=== PATIENT | female | born 1950 | race Caucasian/White ===

== ENCOUNTER 2017-05-20 12:17 | Emergency (ER) | payer BC ==
[~2017-05-20 12:17] MED LIST: ASPI325T39 PO; CPR500 PO; FLEC100T21 PO; MAGN400T6 PO; MCRK20 PO; METO100T14 PO; NRN100 PO; PANT40TA PO; RANI300T2 PO
[2017-05-20 12:23] VITALS: Ht 152.4 cm
[2017-05-20] MEDS ORDERED: PROMETHAZINE HCL INJ 25 MG/ML 1 ML VIAL IV STA (13:10)
[2017-05-20] MEDS ORDERED: SODIUM CHLORIDE 0.9% 1000ML 1,000 ML IV STA (13:10)
[2017-05-20] MEDS ORDERED: KETOROLAC TROMETHAMINE 30 MG/ML VIAL IV STA (13:10)
[2017-05-20] MEDS ORDERED: TPRSR/100 PO (13:12)
[2017-05-20] MEDS ORDERED: MISCCAP80 PO (13:12)
[2017-05-20] MEDS ORDERED: OPTIRAY 320 IV PRN (13:30)
[2017-05-20 13:43] LABS: BASO % 0.5 %; BASO ABS # 0.04 K/uL (0-0.2); COMPLETE YES; EOS % 4.7 %; HEMATOCRIT 47.9 % (37-47); IG% 0.3 %; LYMPH % 25.4 %; LYMPH ABS # 1.94 K/uL (1.2-3.4); MEAN CELL VOLUME 91.1 fL (80-100); MEAN CORPUSCULAR HEMOGLOBIN 31.2 pg (25-34); MEAN CORPUSCULAR HGB CONC 34.2 g/dl (32-36); MEAN PLATELET VOLUME 10.8 fL (7.4-10.4); MONO % 9.5 %; NEUT % 59.6 %; PLATELET COUNT 194 K/uL (130-400); RED BLOOD COUNT 5.26 M/uL (4.2-5.4); WHITE BLOOD COUNT 7.65 K/uL (4.8-10.8)
[2017-05-20 14:10] LABS: ALKALINE PHOSPHATASE 102 U/L (45-117); ALT/SGPT 34 U/L (12-78); BLOOD UREA NITROGEN 19 mg/dl (7-18); BUN/CREATININE RATIO 22.1 (10-20); CALCIUM 9.6 mg/dl (8.5-10.1); CARBON DIOXIDE 27 mmol/L (21-32); CHLORIDE 108 mmol/L (98-107); CREATININE 0.87 mg/dl (0.60-1.20); GLUCOSE 93 mg/dl (70-99); SODIUM 142 mmol/L (136-145)
[2017-05-20] MEDS ORDERED: MoRPHine SULFATE 4 MG/ML 1 ML CARP\\VIAL IV STA (14:19)
--- NOTE | 2017-05-20 16:47 | DIAGNOSTIC IMAGING REPORT ---
ABD/PELVIS IV AND ORAL CONT CT DOSE: 994.54 mGycm HISTORY: Pain ABDOMINAL PAIN/GI TECHNIQUE: Multiaxial CT images of the abdomen and pelvis were performed following the use of intravenous and oral contrast. A dose lowering technique was utilized adhering to the principles of ALARA. COMPARISON STUDY: 06/28/2015 FINDINGS: Lung bases are clear. Liver spleen and pancreas are uniform in appearance. Kidneys are remarkable for several nonobstructing renal calcifications. Bowel pattern is nonobstructive. There is no evidence for an obstructing urinary tract calculus. The appendix is normal. Bladder is midline. There is scattered sigmoid diverticuli with no evidence for diverticulitis. Stable postoperative changes to the lumbar spine. IMPRESSION: 1. No acute process of the abdomen or pelvis. 2. Prior cholecystectomy as well as lumbar laminectomy. 3. Normal appendix. 4. Nonobstructive bowel pattern. 5. Mild chronic sigmoid diverticulosis. The above report was generated using voice recognition software. It may contain grammatical, syntax or spelling errors. Electronically signed by: Clayton Ramsay M.D. 05/20/2017 4:45 PM Dictated Date/Time: 05/20/2017 4:43 PM
[2017-05-20 17:01] LABS: URINE APPEARANCE CLEAR (CLEAR); URINE BILIRUBIN NEG (NEG); URINE COLOR YELLOW; URINE NITRITE NEG (NEG); URINE PH 5.5 (4.5-7.5); URINE SPECIFIC GRAVITY 1.014 (1.000-1.030); UROBILINOGEN NEG (NEG)
[2017-05-20 17:08] LABS: MANUAL MICROSCOPIC REQUIRED? NO; REVIEW REQ? NO
[2017-05-20] MEDS ORDERED: PROM1SUP19 PR (17:53)
--- NOTE | 2017-05-20 17:54 | EMERGENCY ROOM VISIT NOTE ---
ED Visit Note First contact with patient: 13:00 The patient was seen and examined with SONYA Rojas. I agree with the history, physical and findings. Please see the note for disposition and details.
[2017-05-20 18:32] VITALS: BP 132/72; PULSE 68; O2SAT 98
--- NOTE | 2017-05-28 15:24 | EMERGENCY ROOM VISIT NOTE ---
History First contact with patient: 13:00 Chief Complaint: REFERRED BY DOCTOR Stated Complaint: COLITIS-SENT FROM PCP OFFICE History of Present Illness The patient is a 66 year old female who presents to the Emergency Room with complaints of abdominal pain that feels like a belt around her abdomen. The patient reports that her symptoms started Friday morning, a little over 48 hours ago. The patient reports a history of colitis, and has been admitted before in the past for her symptoms. She is currently under the management of [facility], with her last visit approximately 2 months ago. She was undergoing testing to look at the possibility of Crohn's disease. Her last colonoscopy was after her last admission to our hospital in March 2015. She was found to have sigmoid diverticulosis, and changes at the terminal ileum. The patient reports that she transferred her care from Dr. Lee to [facility]. The patient reports that her last flareup was in August 2016 while working in [place]. The patient is a traveling nurse. She has noticed increased mucus in her stool without any recent blood. She has had bloody stools in the past. The patient reports that she is currently scheduled for a colonoscopy in June. She currently rates her discomfort an 8 out of 10. She was sent here by her PCP for further workup. Review of Systems HEENT: Denies dizziness, visual problems, hearing loss, tinnitus. Denies difficulty swallowing or oral lesions. PULMONARY: Denies cough, shortness of breath, sputum production or hemoptysis. CARDIOVASCULAR: Denies chest pain, palpitations, dyspnea on exertion, orthopnea or peripheral edema. GASTROINTESTINAL: See history of present illness. GENITOURINARY: Denies dysuria, frequency, urgency or nocturia. NEUROLOGIC: Denies history of epilepsy, CVA, TIA or chronic headaches. MUSCULOSKELETAL: Denies history of joint tenderness/swelling. SKIN: Denies rashes or lesions. PSYCHIATRIC: Denies history of depression or mental illness. ENDOCRINE: Denies history of diabetes or thyroid disorders. Past Medical/Surgical History Medical Problems: (1) GERD (gastroesophageal reflux disease) (2) Pacemaker Surgical Problems: (1) H/O: hysterectomy (2) S/P appendectomy (3) S/P cholecystectomy Family History Diabetes mellitus FH: cancer FH: gallbladder disease FH: kidney disease FHx: heart disease Hypertension TIAs Social History Smoking Status: Never Smoker Alcohol Use: occasionally Marital Status: Housing Status: lives with significant other Current/Historical Medications Scheduled Metoprolol Succinate (Metoprolol Succinate ER), 100 MG PO DAILY Probiotic Product (Probiotic), 1 CAP PO DAILY Ranitidine (Zantac), 300 MG PO BID Scheduled PRN Promethazine (Phenergan Suppository), 25 MG NM Q4H PRN for Nausea Physical Exam Vital Signs Date Time Temp Pulse Resp B/P (MAP) Pulse Ox O2 Delivery O2 Flow Rate FiO2 05/20/17 18:32 68 16 132/72 98 05/20/17 16:10 65 16 125/76 97 Room Air 05/20/17 14:18 72 16 137/72 97 Room Air 05/20/17 12:23 36.9 76 20 146/85 97 Room Air Physical Exam CONSTITUTIONAL: Healthy and well nourished. Alert and oriented X 3 with positive affect. Patient appears in mild to moderate discomfort. She does not appear acutely ill or toxic. HEENT: Normocephalic, atraumatic. Pupils equal, round and reactive. No scleral icterus or conjunctival injection/pallor. OROPHARYNX: Mucous membranes are dry. NECK: Full active range of motion without discomfort. RESPIRATORY: Clear to auscultation bilaterally with no wheezing, crackles, rhonchi or stridor. CARDIOVASCULAR: Regular rate and rhythm with no murmurs, rubs or gallops. GASTROINTESTINAL: Examination shows diffuse tenderness to palpation of the entire abdomen without obvious rebound. Negative psoas sign. Negative heel tap. Negative CVA tenderness. MUSCULOSKELETAL: Full range of motion of all joints without discomfort. INTEGUMENTARY: No rash or other significant dermatologic conditions noted. HEMATOLOGIC: No ecchymosis or petechiae. NEUROLOGIC: No focal neurologic deficits noted. Medical Decision & Procedures ER Provider Diagnostic Interpretation: Enhanced CT of the abdomen and pelvis does not show any evidence for diverticulitis, bowel obstruction, appendicitis or other acute findings. Radiologist report is as follows: ABD/PELVIS IV AND ORAL CONT CT DOSE: 994.54 mGycm HISTORY: Pain ABDOMINAL PAIN/GI TECHNIQUE: Multiaxial CT images of the abdomen and pelvis were performed following the use of intravenous and oral contrast. A dose lowering technique was utilized adhering to the principles of ALARA. COMPARISON STUDY: 06/28/2015 FINDINGS: Lung bases are clear. Liver spleen and pancreas are uniform in appearance. Kidneys are remarkable for several nonobstructing renal calcifications. Bowel pattern is nonobstructive. There is no evidence for an obstructing urinary tract calculus. The appendix is normal. Bladder is midline. There is scattered sigmoid diverticuli with no evidence for diverticulitis. Stable postoperative changes to the lumbar spine. IMPRESSION: 1. No acute process of the abdomen or pelvis. 2. Prior cholecystectomy as well as lumbar laminectomy. 3. Normal appendix. 4. Nonobstructive bowel pattern. 5. Mild chronic sigmoid diverticulosis. Laboratory Results 05/20/17 13:25 Red Blood Count 5.26, Mean Corpuscular Volume 91.1, Mean Corpuscular Hemoglobin 31.2, Mean Corpuscular Hemoglobin Concent 34.2, Mean Platelet Volume 10.8, Neutrophils (%) (Auto) 59.6, Lymphocytes (%) (Auto) 25.4, Monocytes (%) (Auto) 9.5, Eosinophils (%) (Auto) 4.7, Basophils (%) (Auto) 0.5, Neutrophils # (Auto) 4.56, Lymphocytes # (Auto) 1.94, Monocytes # (Auto) 0.73, Eosinophils # (Auto) 0.36, Basophils # (Auto) 0.04 05/20/17 13:25 05/20/17 15:10 Test 05/20/17 13:25 05/20/17 13:30 05/20/17 15:10 05/20/17 16:38 White Blood Count 7.65 K/uL (4.8-10.8) Red Blood Count 5.26 M/uL (4.2-5.4) Hemoglobin 16.4 g/dL (12.0-16.0) Hematocrit 47.9 % (37-47) Mean Corpuscular Volume 91.1 fL (80-100) Mean Corpuscular Hemoglobin 31.2 pg (25-34) Mean Corpuscular Hemoglobin Concent 34.2 g/dl (32-36) Platelet Count 194 K/uL (130-400) Mean Platelet Volume 10.8 fL (7.4-10.4) Neutrophils (%) (Auto) 59.6 % Lymphocytes (%) (Auto) 25.4 % Monocytes (%) (Auto) 9.5 % Eosinophils (%) (Auto) 4.7 % Basophils (%) (Auto) 0.5 % Neutrophils # (Auto) 4.56 K/uL (1.4-6.5) Lymphocytes # (Auto) 1.94 K/uL (1.2-3.4) Monocytes # (Auto) 0.73 K/uL (0.11-0.59) Eosinophils # (Auto) 0.36 K/uL (0-0.5) Basophils # (Auto) 0.04 K/uL (0-0.2) RDW Standard Deviation 44.4 fL (36.4-46.3) RDW Coefficient of Variation 13.4 % (11.5-14.5) Immature Granulocyte % (Auto) 0.3 % Immature Granulocyte # (Auto) 0.02 K/uL (0.00-0.02) Anion Gap 7.0 mmol/L (3-11) Estimated GFR () 81.0 Estimated GFR (Non- 69.9 BUN/Creatinine Ratio 22.1 (10-20) Calcium Level 9.6 mg/dl (8.5-10.1) Total Bilirubin 1.2 mg/dl (0.2-1) Alanine Aminotransferase (ALT/SGPT) 34 U/L (12-78) Alkaline Phosphatase 102 U/L (45-117) Total Protein 7.3 gm/dl (6.4-8.2) Albumin 3.9 gm/dl (3.4-5.0) Lipase 214 U/L (73-393) Bedside Lactic Acid Venous 1.45 mmol/L (0.90-1.70) Direct Bilirubin 0.2 mg/dl (0-0.2) Aspartate Amino Transf (AST/SGOT) 22 U/L (15-37) Urine Color YELLOW Urine Appearance CLEAR (CLEAR) Urine pH 5.5 (4.5-7.5) Urine Specific [place] 1.014 (1.000-1.030) Urine Protein NEG (NEG) Urine Glucose (UA) NEG (NEG) Urine Ketones TRACE (NEG) Urine Occult Blood NEG (NEG) Urine Nitrite NEG (NEG) Urine Bilirubin NEG (NEG) Urine Urobilinogen NEG (NEG) Urine Leukocyte Esterase TRACE (NEG) Urine WBC (Auto) 1-5 /hpf (0-5) Urine RBC (Auto) 0-4 /hpf (0-4) Urine Hyaline Casts (Auto) 0 /lpf (0-5) Urine Epithelial Cells (Auto) 10-20 /lpf (0-5) Urine Bacteria (Auto) 1+ (NEG) Date/Time Source Procedure Growth Status 05/20/17 00:00 Stool C.difficile Toxin B Gene (PCR) - Final No C. difficile toxin B gene detected Complete The above labs were reviewed with a mildly elevated total bilirubin. C. difficile is negative. Urinalysis is not consistent with overwhelming infection.. Medications Administered Medications (Trade) Dose Ordered Sig/[place]hell Route Start Time Stop Time Status Last Admin Dose Admin Ketorolac Tromethamine (Toradol Inj) 30 mg NOW STAT IV 05/20/17 13:10 05/20/17 13:13 DC 05/20/17 13:35 30 MG Sodium Chloride 1,000 ml @ 999 mls/hr Q1H1M STAT IV 05/20/17 13:10 05/20/17 14:10 DC 05/20/17 13:34 999 MLS/HR Promethazine HCl (Phenergan Inj) 25 mg NOW STAT IV 05/20/17 13:10 05/20/17 13:13 DC 05/20/17 13:34 25 MG Morphine Sulfate (MoRPHine SULFATE INJ) 4 mg NOW STAT IV 05/20/17 14:19 05/20/17 14:20 DC 05/20/17 15:14 4 MG Procedure 1. IV hydration: The patient was administered normal saline 1 L bolus 2. IV medications: Toradol 30 mg and Phenergan 25 mg IVP. While undergoing oral prep, she requested something stronger for pain, and was administered morphine 4 mg IVP. ED Course Patient history and physical exam were performed. Nurse's notes were reviewed. Vital signs were reviewed and normal. The patient is afebrile. Based on the patient's history and current symptoms, I did suggest performing an enhanced CT of the abdomen and pelvis. The patient initially was not wanting a contrast study, however I explained that the things I would be looking for is best visualized with both IV and oral contrast. The patient also requested IV Toradol and Phenergan for pain and nausea. IV access was established, and labs were drawn. The patient was hydrated with normal saline, and was initially administered IV Toradol and Phenergan as requested. Review of labs showed no significant findings. Enhanced CT of the abdomen and pelvis did not show any acute findings. She does have a chronic sigmoid diverticulosis. Results were further discussed with the patient, as well as Dr. Mendez, ED attending physician, who agrees with workup and plan of care. The patient was instructed to follow-up with [facility] for further management. The patient reports that she usually uses Phenergan suppositories for nausea, however is low on her medications. She was provided a prescription for Phenergan suppositories. She was instructed to seek further emergent reevaluation for any progressively worsening pain, bloody stool, fever , persistent vomiting or other concerning symptoms. The patient was happy with plan of care, and denied any significant pain or nausea at the time of discharge. Medical Decision Patient presents to the emergency department with complaint of abdominal pain. She has a significant history of chronic sigmoid diverticulosis, and CT studies today do not show any evidence for diverticulitis or bowel obstruction. The appendix also appears normal. Remaining labs are also grossly normal, and the patient is afebrile. At this point, I do feel that the patient is safe for outpatient management. She was instructed to return for any worsening symptoms. Impression Primary Impression: Abdominal pain Departure Information Prescriptions Promethazine (Phenergan Suppository) 25 Mg Supp 25 MG NM Q4H Y for Nausea, #30 SUPP Prov: Sergio Cochran PA 05/20/17 Referrals RV. Conti MD (PCP) Patient Instructions My [facility] Problem Qualifiers Primary Impression: Abdominal pain Abdominal location: generalized Qualified Codes: R10.84 - Generalized abdominal pain
== END 2017-05-20 18:33 | disposition home or self-care (01) ==
LOC: C.EDB 12:18
DX: R10.84 Generalized abdominal pain (principal); K21.9 Gastro-esophageal reflux disease without esophagitis; Z95.0 Presence of cardiac pacemaker; Z83.3 Family history of diabetes mellitus; Z82.49 Family history of ischemic heart disease and other diseases of the circulatory system

== ENCOUNTER → 2017-11-18 | Outpatient (CLI) | payer BC ==
[~2017-11-18] MED LIST changes: -ASPI325T39 PO; -CPR500 PO; -FLEC100T21 PO; +GABA-112 PO; +LATA0.009 OPB; -MAGN400T6 PO; -MCRK20 PO; -METO100T14 PO; +MISCCAP80 PO; -NRN100 PO; -PANT40TA PO; +PRLSR20 PO; +TPRSR/100 PO
[2017-11-18 10:33] LABS: BLOOD UREA NITROGEN 13 mg/dl (7-18); CALCIUM 9.5 mg/dl (8.5-10.1); CARBON DIOXIDE 24 mmol/L (21-32); CREATININE 0.79 mg/dl (0.60-1.20); GLUCOSE 162 mg/dl (70-99); POTASSIUM 3.6 mmol/L (3.5-5.1); SODIUM 141 mmol/L (136-145)
== END | disposition home or self-care (01) ==
LOC: C.LAB1850 09:08
PROVIDERS: ATTEND Internal Medicine Clinical Cardiac Electrophysiology
DX: I47.1 Supraventricular tachycardia (principal)

== ENCOUNTER 2018-01-07 11:42 | Emergency (ER) | payer BC ==
[~2018-01-07] VITALS: Ht 149.9 cm; Wt 92.0 kg
[2018-01-07 11:54] VITALS: Ht 149.9 cm; Wt 92.0 kg
[2018-01-07] MEDS ORDERED: ONDANSETRON INJ 2 MG/ML 2 ML VIAL IV STA (12:14)
--- NOTE | 2018-01-07 12:22 | EMERGENCY ROOM VISIT NOTE ---
History Report prepared by Ramírez: Ha Blanton Under the Supervision of: Dr. Hill Casper M.D. First contact with patient: 12:07 Chief Complaint: CARDIAC ASSESSMENT Stated Complaint: L ARM/SHOULDER PAIN Nursing Triage Summary: pt to the ED with c/o left arm and shoulder pain that started 2 hrs ago no injury c/o diaphoresis while sitting still and then had SOB History of Present Illness The patient is a 67 year old female who presents to the Emergency Room with complaints of feeling generally unwell and "exhausted" which has been constant over the past couple of days. The patient notes that she has been "wiped out" lately, and she has not felt herself. She was concerned of an episode that occurred this morning at 0930, 2.5 hours ago. She was at a deposition when she developed an "achiness" in her left arm and shoulder. This discomfort progressively worsened. The patient then became diaphoretic and developed an "overwhelming feeling like she was going to pass out." She attempted to walk down the hallway a short distance and became short of breath. She needed to sit down and gather herself while walking down the hallway. The patient does have a history of cardiac arrest in the past, when she was found on the floor unconscious at work. After this she had a halter-monitor placed which showed a period of v-tach with a long pause. After this episode she had a pacer placed. The patient was also recently started on Xarelto, 8 weeks ago, for atrial fibrillation. She has not noticed any melena since starting this medication. Source of History: patient Onset: Past couple of days Position: shoulder (left), arm (left) Quality: other ("exhaustion") Timing: other (Persistent) Associated Symptoms: + diaphoresis, + SOB Note: Left arm and shoulder pain. Review of Systems See HPI for pertinent positives & negatives. A total of 10 systems reviewed and were otherwise negative. Past Medical & Surgical Medical Problems: (1) GERD (gastroesophageal reflux disease) (2) Pacemaker Surgical Problems: (1) H/O: hysterectomy (2) S/P appendectomy (3) S/P cholecystectomy Family History Diabetes mellitus FH: cancer FH: gallbladder disease FH: kidney disease FHx: heart disease Hypertension TIAs Social History Smoking Status: Never Smoker Alcohol Use: occasionally Marital Status: Housing Status: lives with significant other Current/Historical Medications Scheduled Gabapentin (Neurontin), 100 MG PO TID Latanoprost (Xalatan 0.005% Oph Modesta), 1 DROPS OPB HS Metoprolol Succinate (Metoprolol Succinate ER), 100 MG PO QAM Omeprazole (Prilosec), 20 MG PO BID Probiotic Product (Probiotic), 1 CAP PO DAILY Ranitidine (Zantac), 300 MG PO BID Rivaroxaban (Xarelto), 20 MG PO DAILY Scheduled PRN Flecainide Acetate (Flecainide Acetate), 150 MG PO BID PRN for UNDECIDED Allergies Coded Allergies: Flu Virus Vaccine (Verified Allergy, Severe, ANAPHYLACTIC, 08/27/17) Lidocaine (Verified Allergy, Severe, ANAPHYLAXIS, 08/27/17) NSAIDs (Unverified Allergy, Severe, causes throat issues, 08/27/17) Thimerosal (Verified Allergy, Severe, ANAPHYLACTIC, 08/27/17) Penicillins (Verified Allergy, Mild, HIVES, 08/27/17) Cefazolin (Verified Allergy, Unknown, HIVES, 08/27/17) Adhesives (Unverified Adverse Reaction, Unknown, TEARING OF SKIN, BLISTERS , 08/27/17) Physical Exam Vital Signs Date Time Temp Pulse Resp B/P (MAP) Pulse Ox O2 Delivery O2 Flow Rate FiO2 01/07/18 16:19 66 01/07/18 15:59 78 22 145/91 98 Room Air 01/07/18 13:10 37.0 77 16 155/105 95 Room Air 159/106 01/07/18 12:14 93 01/07/18 11:54 37.0 103 20 165/109 96 Room Air Physical Exam GENERAL: Patient is in no acute distress. HEENT: No acute trauma, normocephalic atraumatic, mucous membranes moist, no nasal congestion, no scleral icterus. NECK: No stridor, no adenopathy, no meningismus, trachea is midline. LUNGS: Clear to auscultation bilaterally, no wheeze, no rhonchi, breath sounds equal. HEART: Without murmurs gallops or rubs, regular rate and rhythm. ABDOMEN: Soft, nontender, bowel sounds positive, no hernias, no peritonitis. EXTREMITIES: No cyanosis or edema, full range of motion of all the joints without pain or difficulty, no signs for acute trauma. NEUROLOGIC: Oriented x 3, no acute motor or sensory deficits, no focal weakness. SKIN: No rash, no jaundice, no diaphoresis. Medical Decision & Procedures ER Provider Diagnostic Interpretation: Radiology results as stated below per my review and radiologist interpretation: CHEST ONE VIEW PORTABLE CLINICAL HISTORY: 67 years-old Female presenting with EVALUATE ALTERED MENTAL STATUS/WEAKNESS. TECHNIQUE: Portable upright AP view of the chest was obtained. COMPARISON: 04/01/2015. FINDINGS: Right subclavian pacer with leads to the right atrium and right ventricular apex. Atherosclerosis of the aortic arch. Cardiac silhouette mildly enlarged. Pulmonary vasculature mildly prominent. Minimal bandlike opacities in the periphery of the left mid lung unchanged. No focal opacity. No large effusion or pneumothorax. Partially visualized lumbar fusion hardware. Cholecystectomy clips noted. IMPRESSION: 1. Mild cardiomegaly with suggestion of volume overload. No ricky pulmonary edema. 2. Left mid lung scarring. Electronically signed by: Jeancarlos Cooney M.D. 01/07/2018 12:31 PM Dictated Date/Time: 01/07/2018 12:30 PM Laboratory Results 01/07/18 12:35 Red Blood Count 5.15, Mean Corpuscular Volume 90.3, Mean Corpuscular Hemoglobin 31.1, Mean Corpuscular Hemoglobin Concent 34.4, Mean Platelet Volume 10.9, Neutrophils (%) (Auto) 67.7, Lymphocytes (%) (Auto) 19.5, Monocytes (%) (Auto) 9.2, Eosinophils (%) (Auto) 2.5, Basophils (%) (Auto) 1.0, Neutrophils # (Auto) 4.78, Lymphocytes # (Auto) 1.38, Monocytes # (Auto) 0.65, Eosinophils # (Auto) 0.18, Basophils # (Auto) 0.07 01/07/18 12:35 Test 01/07/18 12:35 01/07/18 13:55 01/07/18 15:38 White Blood Count 7.07 K/uL (4.8-10.8) Red Blood Count 5.15 M/uL (4.2-5.4) Hemoglobin 16.0 g/dL (12.0-16.0) Hematocrit 46.5 % (37-47) Mean Corpuscular Volume 90.3 fL (80-100) Mean Corpuscular Hemoglobin 31.1 pg (25-34) Mean Corpuscular Hemoglobin Concent 34.4 g/dl (32-36) Platelet Count 185 K/uL (130-400) Mean Platelet Volume 10.9 fL (7.4-10.4) Neutrophils (%) (Auto) 67.7 % Lymphocytes (%) (Auto) 19.5 % Monocytes (%) (Auto) 9.2 % Eosinophils (%) (Auto) 2.5 % Basophils (%) (Auto) 1.0 % Neutrophils # (Auto) 4.78 K/uL (1.4-6.5) Lymphocytes # (Auto) 1.38 K/uL (1.2-3.4) Monocytes # (Auto) 0.65 K/uL (0.11-0.59) Eosinophils # (Auto) 0.18 K/uL (0-0.5) Basophils # (Auto) 0.07 K/uL (0-0.2) RDW Standard Deviation 43.8 fL (36.4-46.3) RDW Coefficient of Variation 13.2 % (11.5-14.5) Immature Granulocyte % (Auto) 0.1 % Immature Granulocyte # (Auto) 0.01 K/uL (0.00-0.02) Prothrombin Time 11.2 SECONDS (9.0-12.0) Prothromb Time International Ratio 1.1 (0.9-1.1) Activated Partial Thromboplast Time 28.7 SECONDS (21.0-31.0) Partial Thromboplastin Ratio 1.1 Anion Gap 6.0 mmol/L (3-11) Est Creatinine Clear Calc Drug Dose 67.7 ml/min Estimated GFR () 87.7 Estimated GFR (Non- 75.7 BUN/Creatinine Ratio 23.6 (10-20) Calcium Level 9.3 mg/dl (8.5-10.1) Magnesium Level 2.2 mg/dl (1.8-2.4) Total Bilirubin 0.4 mg/dl (0.2-1) Aspartate Amino Transf (AST/SGOT) 15 U/L (15-37) Alanine Aminotransferase (ALT/SGPT) 23 U/L (12-78) Alkaline Phosphatase 113 U/L (45-117) Total Protein 7.0 gm/dl (6.4-8.2) Albumin 3.8 gm/dl (3.4-5.0) Globulin 3.2 gm/dl (2.5-4.0) Albumin/Globulin Ratio 1.2 (0.9-2) Thyroid Stimulating Hormone (TSH) 2.290 uIu/ml (0.300-4.500) Urine Color YELLOW Urine Appearance CLEAR (CLEAR) Urine pH 5.5 (4.5-7.5) Urine Specific Kendall 1.023 (1.000-1.030) Urine Protein NEG (NEG) Urine Glucose (UA) NEG (NEG) Urine Ketones NEG (NEG) Urine Occult Blood NEG (NEG) Urine Nitrite NEG (NEG) Urine Bilirubin NEG (NEG) Urine Urobilinogen NEG (NEG) Urine Leukocyte Esterase TRACE (NEG) Urine WBC (Auto) 5-10 /hpf (0-5) Urine RBC (Auto) 0-4 /hpf (0-4) Urine Hyaline Casts (Auto) 1-5 /lpf (0-5) Urine Epithelial Cells (Auto) >30 /lpf (0-5) Urine Bacteria (Auto) 1+ (NEG) Troponin I < 0.015 ng/ml (0-0.045) Laboratory results reviewed by me. Medications Administered Medications (Trade) Dose Ordered Sig/Lashell Route Start Time Stop Time Status Last Admin Dose Admin Ondansetron HCl (Zofran Inj) 4 mg NOW STAT IV 01/07/18 12:14 01/07/18 12:17 DC 01/07/18 13:00 4 MG ECG Per My Interpretation Indication: diaphoresis, SOB/dyspnea Rate (beats per minute): 93 Rhythm: normal sinus Findings: other (No NILDA/STD, No PVCs, poor r-wave progression noted. ) ED Course 1210: The patient was evaluated in room A10. A complete history and physical exam was performed. 1214: Ordered Zofran 4 mg IV. 1339: I discussed the case with Dr. Lara Sexton Cardiology. He suggests He suggests getting a second round of cardiac enzymes, and if they are normal she will be safe to go home. He will come to the department to evaluate the patient. 1348: I updated the patient at this time. She verbalizes understanding and agreement. 1411: I discussed the case with Dr. Lara Sexton Cardiology again. He has evaluated the patient. Interrogation of her Pacer did not show anything aside from her normal, or that would explain her symptoms. He suggests repeat Troponin at 1500 , if normal she is safe to go home. Patient was reassessed, she is resting comfortably. She is being discharged home. Medical Decision Differential Diagnosis includes; dysrhythmia, CHF, myocardial infarction, anemia , angina, electrolyte abnormality, infection, UTI. There is no leukocytosis or concerning anemia. No significant electrolyte abnormality, kidney failure or hepatitis. The patient appears to be in a euthyroid state. EKG shows a normal sinus rhythm, no acute ischemic change. Cardiac enzyme testing 2 does not suggest acute cardiac injury. Chest film does not show pneumonia or concerning CHF. No pneumothorax. Urinalysis does not show infection. The patient presents with an episode of shoulder discomfort, sweating, nausea and fatigue. She was in a stressful environment when this occurred. I spoke with the on-call [facility] boom crane operator. He did see the patient and did interrogate her pacemaker. He felt that she was stable for discharge since her workup was benign. This all may have been an anxiety related event. The patient did receive IV Zofran for nausea, she has not required anything for pain. She is resting comfortably. Her blood pressure is trending down. The patient is being discharged with outpatient cardiology follow-up. She was encouraged to return for any return of the symptoms or worsening symptoms in general. Medication Reconcilliation Current Medication List: was personally reviewed by me Blood Pressure Screening Patient's blood pressure: Elevated blood pressure Blood pressure disposition: Referred to PCP Consults Time Called: 1337 Consulting Physician: Dr. Lara Kimble Returned Call: [phone] I discussed the case with Dr. Lara Kimble. He suggests getting a second round of cardiac enzymes, and if they are normal she will be safe to go home. He will come to the department to evaluate the patient. Impression Primary Impression: Left shoulder pain Additional Impressions: SOB (shortness of breath) Near syncope Scribe Attestation The scribe's documentation has been prepared under my direction and personally reviewed by me in its entirety. I confirm that the note above accurately reflects all work, treatment, procedures, and medical decision making performed by me. Departure Information Dispostion Home / Self-Care Referrals RV. Conti MD (PCP) Patient Instructions My [facility] Health Problem Qualifiers
--- NOTE | 2018-01-07 12:33 | DIAGNOSTIC IMAGING REPORT ---
CHEST ONE VIEW PORTABLE CLINICAL HISTORY: 67 years-old Female presenting with EVALUATE ALTERED MENTAL STATUS/WEAKNESS. TECHNIQUE: Portable upright AP view of the chest was obtained. COMPARISON: 04/01/2015. FINDINGS: Right subclavian pacer with leads to the right atrium and right ventricular apex. Atherosclerosis of the aortic arch. Cardiac silhouette mildly enlarged. Pulmonary vasculature mildly prominent. Minimal bandlike opacities in the periphery of the left mid lung unchanged. No focal opacity. No large effusion or pneumothorax. Partially visualized lumbar fusion hardware. Cholecystectomy clips noted. IMPRESSION: 1. Mild cardiomegaly with suggestion of volume overload. No ricky pulmonary edema. 2. Left mid lung scarring. Electronically signed by: Jeancarlos Cooney M.D. 01/07/2018 12:31 PM Dictated Date/Time: 01/07/2018 12:30 PM
[2018-01-07] MEDS ORDERED: FLEC150T PO (12:38)
[2018-01-07] MEDS ORDERED: XRL20 PO (12:38)
[2018-01-07 13:05] LABS: INR 1.1 (0.9-1.1); PTT PATIENT 28.7 SECONDS (21.0-31.0)
[2018-01-07 13:06] LABS: BASO ABS # 0.07 K/uL (0-0.2); EOS % 2.5 %; EOS ABS # 0.18 K/uL (0-0.5); HEMATOCRIT 46.5 % (37-47); IG# 0.01 K/uL (0.00-0.02); LYMPH % 19.5 %; LYMPH ABS # 1.38 K/uL (1.2-3.4); MEAN CELL VOLUME 90.3 fL (80-100); MEAN CORPUSCULAR HEMOGLOBIN 31.1 pg (25-34); MEAN CORPUSCULAR HGB CONC 34.4 g/dl (32-36); MEAN PLATELET VOLUME 10.9 fL (7.4-10.4); MONO % 9.2 %; MONO ABS # 0.65 K/uL (0.11-0.59); NEUT % 67.7 %; NEUT ABS # 4.78 K/uL (1.4-6.5); PLATELET COUNT 185 K/uL (130-400); RED CELL DISTRIBUTION WIDTH CV 13.2 % (11.5-14.5); RED CELL DISTRIBUTION WIDTH SD 43.8 fL (36.4-46.3); WHITE BLOOD COUNT 7.07 K/uL (4.8-10.8)
[2018-01-07 13:10] VITALS: TEMP 37
[2018-01-07 13:26] LABS: ALBUMIN 3.8 gm/dl (3.4-5.0); ALT/SGPT 23 U/L (12-78); BLOOD UREA NITROGEN 19 mg/dl (7-18); CALCIUM 9.3 mg/dl (8.5-10.1); CARBON DIOXIDE 26 mmol/L (21-32); CREATININE 0.81 mg/dl (0.60-1.20); GLUCOSE 118 mg/dl (70-99); POTASSIUM 4.1 mmol/L (3.5-5.1); SODIUM 139 mmol/L (136-145)
[2018-01-07 13:36] LABS: ALKALINE PHOSPHATASE 113 U/L (45-117); AST/SGOT 15 U/L (15-37)
[2018-01-07 15:59] VITALS: BP 145/91; O2SAT 98
[2018-01-07 16:19] VITALS: PULSE 66
== END 2018-01-08 00:26 | disposition home or self-care (01) ==
LOC: C.EDB 11:44 → C.EDA 01-08 00:26
DX: M25.512 Pain in left shoulder (principal); R06.02 Shortness of breath; R55 Syncope and collapse; Z86.74 Personal history of sudden cardiac arrest; Z95.0 Presence of cardiac pacemaker; K21.9 Gastro-esophageal reflux disease without esophagitis; I48.91 Unspecified atrial fibrillation; Z90.49 Acquired absence of other specified parts of digestive tract; Z90.710 Acquired absence of both cervix and uterus; Z90.89 Acquired absence of other organs; Z83.3 Family history of diabetes mellitus; Z82.49 Family history of ischemic heart disease and other diseases of the circulatory system; Z82.3 Family history of stroke; Z79.01 Long term (current) use of anticoagulants; Z79.899 Other long term (current) drug therapy

== ENCOUNTER → 2018-02-05 | Outpatient (CLI) | payer BC ==
[~2018-02-05] MED LIST changes: +FLEC150T PO; +XRL20 PO
--- NOTE | 2018-02-05 12:16 | DIAGNOSTIC IMAGING REPORT ---
LUMBAR SPINE 5 VIEWS HISTORY: M54.5 Low back [id number] COMPARISON: Lumbar spine 07/23/2014. FINDINGS: There is no fracture. Prior cholecystectomy. A pacemaker wire is noted. The sacrum is intact. Mild levoscoliosis, unchanged. Posterior decompression and fusion from L2 through L5 with pedicle screws and rods. The hardware appears intact. Mild periprosthetic lucency at the bilateral L5 pedicle screws remains unchanged. No change in the grade I anterolisthesis of L4 and L5. Mild disc space narrowing at L5-S1 persists. Moderate disc space narrowing and endplate sclerosis at L1-L2 which has progressed. IMPRESSION: 1. No acute fracture identified within the lumbar spine. 2. Moderate degenerative disc disease at L1-L2 which has progressed. 3. Posterior decompression and fusion from L2 through L5. The hardware is intact. Mild periprosthetic lucency at the L5 pedicle screws remains unchanged. Electronically signed by: Galo Zavala M.D. 02/05/2018 12:14 PM Dictated Date/Time: 02/05/2018 12:12 PM
== END | disposition home or self-care (01) ==
LOC: C.RAD1850 11:55
PROVIDERS: ATTEND Physician Assistant
DX: M51.36 Other intervertebral disc degeneration, lumbar region (principal)

== ENCOUNTER → 2018-05-25 | Day surgery (SDC) | payer BC ==
[2017-08-27 10:27] VITALS: BMI 38.0
[2018-05-22 14:52] VITALS: Ht 149.9 cm; Wt 91.8 kg
[~2018-05-25] VITALS: Ht 149.9 cm; Wt 91.8 kg
[~2018-05-25] MED LIST changes: +DULO60CA44 PO; +MIDAZOLAM HCL 1 MG/ML 2ML VIAL ONE; +ONDANSETRON INJ 2 MG/ML 2 ML VIAL IV ONE; +ONDANSETRON INJ 2 MG/ML 2 ML VIAL ONE; +PROPOFOL IV EMULSION 10 MG/ML 20 ML VIAL ONE; +SODIUM CHLORIDE 0.9% 500ML 500 ML IV ONE
--- NOTE | 2018-05-25 14:32 | Endo History and Physical ---
History & Physical Date of Service: May 25, 2018. Chief Complaint: INTESTIAL METAPLASIA, CROHN'S Referring Physician: DR. PRIETO History of Present Illness 67 yo CF who presents for EGD and colonoscopy secondary to intestinal metaplasia and Crohn's disease. Past Medical History Arthritis, Anxiety, Reflux, Depression Past Surgical History Hx Cardiac Surgery: Yes (HEART CATH-NO STENTS) Hx Internal Defibrillator: No Hx Pacemaker: Yes (X 2 (1ST DEVICE BECAME INFECTED)) Hx Abdominal Surgery: Yes (ZACHARIAH, MITA BSO) Hx of Implantable Prosthesis: No Hx Post-Op Nausea and Vomiting: Yes Hx Cancer Surgery: No Hx Thoracic Surgery: Yes (LUMBAR SPINAL FUSION) Hx Orthopedic: Yes (RT TKA) Hx Urinary Tract Surgery: Yes (CYTOSCOPY/STENTS INSERTED (MULTIPLE)) Family History Colon CA, Esophogeal CA, Polyp, IBD Social History Smoking Status: Never Smoker Hx Substance Use: No Hx Alcohol Use: No Allergies Coded Allergies: Flu Virus Vaccine (Verified Allergy, Severe, ANAPHYLACTIC, 05/22/18) Lidocaine (Verified Allergy, Severe, ANAPHYLAXIS, 05/22/18) NSAIDs (Unverified Allergy, Severe, causes throat issues, 05/22/18) Thimerosal (Verified Allergy, Severe, ANAPHYLACTIC, 05/22/18) Penicillins (Verified Allergy, Mild, HIVES, 05/22/18) Cefazolin (Verified Allergy, Unknown, HIVES, 05/22/18) Adhesives (Unverified Adverse Reaction, Unknown, TEARING OF SKIN, BLISTERS , 05/22/18) Current Medications Reported Home Medications Medications Dose Route/Sig Max Daily Dose Days Date Category Dose Instructions Cymbalta (Duloxetine Hcl) Unknown Strength Cap Unknown Dose PO QAM 05/22/18 Reported Flecainide Acetate 150 Mg Tab 1 Tab PO DIRECTED PRN 05/22/18 Reported Xarelto (Rivaroxaban) 20 Mg Tab 20 Mg PO HS 01/07/18 Reported Xalatan 0.005% Oph Modesta (Latanoprost) 0.005 % Modesta 1 Drops OPB HS 08/27/17 Reported Neurontin (Gabapentin) 100 Mg Cap 100 Mg PO DIRECTED 08/27/17 Reported TAKES 100MG AM AND AT LUNCH TIME TAKES 300MG HS Prilosec (Omeprazole) 20 Mg Capcr 20 Mg PO BID 08/27/17 Reported Probiotic (Probiotic Product) 1 Cap Cap 1 Cap PO DAILY 05/20/17 Reported Metoprolol Succinate ER (Metoprolol Succinate) 100 Mg Tabcr 100 Mg PO QAM 05/20/17 Reported Zantac (Ranitidine HCl) 300 Mg Tab 300 Mg PO BID 06/27/14 Reported Vital Signs Weight (Kilograms): 91.82 Height (Feet): 4 Height (Inches): 11 Date Time Temp Pulse Resp B/P (MAP) Pulse Ox O2 Delivery O2 Flow Rate FiO2 05/25/18 13:50 36.9 76 20 156/106 (123) 94 Room Air Physical Exam General Appearance: WD/WN, no apparent distress Respiratory/Chest: Auscultation: breath sounds normal Cardiovascular: Heart Auscultation: RRR Abdomen: Bowel Sounds: normal Inspection & Palpation: soft, non-distended, no tenderness, guarding & rebound Assessment and Plan Assessment: 67 yo CF who presents for EGD and colonoscopy secondary to intestinal metaplasia and Crohn's disease. Plan: Proceed with EGD and colonoscopy.
--- NOTE | 2018-05-25 15:21 | Discharge Instructions ---
Endoscopy Patient Instructions Date / Procedure(s) Performed May 25, 2018. Colonoscopy, EGD Allergy Information Coded Allergies: Flu Virus Vaccine (Verified Allergy, Severe, ANAPHYLACTIC, 05/22/18) Lidocaine (Verified Allergy, Severe, ANAPHYLAXIS, 05/22/18) NSAIDs (Unverified Allergy, Severe, causes throat issues, 05/22/18) Thimerosal (Verified Allergy, Severe, ANAPHYLACTIC, 05/22/18) Penicillins (Verified Allergy, Mild, HIVES, 05/22/18) Cefazolin (Verified Allergy, Unknown, HIVES, 05/22/18) Adhesives (Unverified Adverse Reaction, Unknown, TEARING OF SKIN, BLISTERS , 05/22/18) Discharge Date / Findings May 25, 2018. EGD: Gastric antrum biopsies, Hiatal hernia, Esophagitis with biopsies Colonoscopy: Colon polyp, Diverticulosis, Internal hemorrhoids, Fair bowel prep Medication Instructions OK to resume all medications today as prescribed Reported Home Medications Medications Dose Route/Sig Max Daily Dose Days Date Category Dose Instructions Cymbalta (Duloxetine Hcl) Unknown Strength Cap Unknown Dose PO QAM 05/22/18 Reported Flecainide Acetate 150 Mg Tab 1 Tab PO DIRECTED PRN 05/22/18 Reported Xarelto (Rivaroxaban) 20 Mg Tab 20 Mg PO HS 01/07/18 Reported Xalatan 0.005% Oph Modesta (Latanoprost) 0.005 % Modesta 1 Drops OPB HS 08/27/17 Reported Neurontin (Gabapentin) 100 Mg Cap 100 Mg PO DIRECTED 08/27/17 Reported TAKES 100MG AM AND AT LUNCH TIME TAKES 300MG HS Prilosec (Omeprazole) 20 Mg Capcr 20 Mg PO BID 08/27/17 Reported Probiotic (Probiotic Product) 1 Cap Cap 1 Cap PO DAILY 05/20/17 Reported Metoprolol Succinate ER (Metoprolol Succinate) 100 Mg Tabcr 100 Mg PO QAM 05/20/17 Reported Zantac (Ranitidine HCl) 300 Mg Tab 300 Mg PO BID 06/27/14 Reported Provider Instructions Activity Restrictions - No exercising or heavy lifting for 24 hours. - Do not drink alcohol the day of the procedure. - Do not drive a car or operate machinery until the day after the procedure. - Do not make any important decisions or sign important papers in 24 hours after the procedure. Following Day: - Return to full activity which may include returning to work/school. Diet Start your diet with liquids and light foods (jello, soup, juice, toast). Then eat your usual diet if not nauseated. Treatment For Common After Affects For mild abdominal pain, bloating, or excessive gas: - Rest - Eat lightly - Lie on right side Follow-Up Information Follow-up with DR. PRIETO as scheduled Anesthesia Information What You Should Know You have had a procedure that required some medicine to reduce anxiety and discomfort. This treatment is called moderate sedation. After receiving the treatment, you may be sleepy, but you will be able to breathe on your own. The effects of the treatment may last for several hours. Follow these instructions along with Activity/Diet recommendations noted above: * Do NOT do anything where dizziness or clumsiness would be dangerous. * Rest quietly at home today, then you can be up and about tomorrow. * Have a responsible person stay with you the rest of today. * You may have had an I.V. today. If so, you may take the dressing off later today. Recommendations Call your doctor if: * Trouble breathing * Continuous vomiting for more than 24 hours * Temperature above 101 degrees * Severe abdominal pain or bloating * Pain not relieved by pain medicine ordered * There is increased drainage or redness from any incision * A large amount of rectal bleeding greater than 2-3 tablespoons. (If you had a polyp/s removed or have hemorrhoids, a small amount of blood - from the rectum is to be expected.) * You have any unanswered questions or concerns. IN THE EVENT OF A SERIOUS EMERGENCY, GO TO THE NEAREST EMERGENCY ROOM Your discharge instructions were prepared by provider Fadi Lee. Patient Instructions Signature Page Shalini Garrison Patient (or Guardian) Signature/Date: I have read and understand the instructions given to me by my caregivers. Caregiver/RN/Doctor Signature/Date: The above-named patient and/or guardian has received patient instructions on this date. + Original Patient Signature Page (only) stays with chart. Please make copy for patient.
--- NOTE | 2018-05-25 15:27 | GI REPORT ---
Patient Name: Shalini Garrison Procedure Date: 05/25/2018 2:33 PM Date of : 1950 Admit Type: Outpatient Age: 67 Gender: Female Attending MD: Fadi Lee DO Procedure: Upper GI endoscopy Providers: Fadi Lee DO Referring MD: Gema Conti Indications: Intestinal metaplasia of the stomach Medicines: Monitored Anesthesia Care Complications: No immediate complications. Estimated Blood Loss: Estimated blood loss: none. Procedure: Pre-Anesthesia Assessment: - Prior to the procedure, a History and Physical was performed, and patient medications and allergies were reviewed. The patient's tolerance of previous anesthesia was also reviewed. The risks and benefits of the procedure and the sedation options and risks were discussed with the patient. All questions were answered, and informed consent was obtained. Prior Anticoagulants: The patient has taken Xarelto (rivaroxaban), last dose was 1 day prior to procedure. ASA Grade Assessment: III - A patient with severe systemic disease. After reviewing the risks and benefits, the patient was deemed in satisfactory condition to undergo the procedure. After obtaining informed consent, the endoscope was passed under direct vision. Throughout the procedure, the patient's blood pressure, pulse, and oxygen saturations were monitored continuously. The scope was introduced through the mouth, and advanced to the second part of duodenum. The upper GI endoscopy was accomplished without difficulty. The patient tolerated the procedure well. Findings: Moderately severe esophagitis with no bleeding was found. Biopsies were taken with a cold forceps for histology. A small hiatal hernia was present. Biopsies were taken with a cold forceps in the gastric antrum for histology. The examined duodenum was normal. Impression: - Moderately severe chronic esophagitis. Biopsied. - Small hiatal hernia. - Normal examined duodenum. - Biopsies were taken with a cold forceps for histology in the gastric antrum. Recommendation: - Resume previous diet. - Continue present medications. - Await pathology results. - Return to primary care physician as previously scheduled. Fadi Lee DO 05/25/2018 3:27:26 PM This report has been signed electronically. Note Initiated On: 05/25/2018 2:33 PM Number of Addenda: 0 I attest to the content of the Intraoperative Record and orders documented therein, exceptions below {[id number]}
--- NOTE | 2018-05-25 15:31 | GI REPORT ---
Patient Name: Shalini Garrison Procedure Date: 05/25/2018 2:33 PM Date of : 1950 Admit Type: Outpatient Age: 67 Gender: Female Attending MD: Fadi Lee DO Procedure: Colonoscopy Providers: Fadi Lee DO Referring MD: Gema Conti Indications: Suspected Crohn's disease Medicines: Monitored Anesthesia Care Complications: No immediate complications. Estimated Blood Loss: Estimated blood loss: none. Procedure: Pre-Anesthesia Assessment: - Prior to the procedure, a History and Physical was performed, and patient medications and allergies were reviewed. The patient's tolerance of previous anesthesia was also reviewed. The risks and benefits of the procedure and the sedation options and risks were discussed with the patient. All questions were answered, and informed consent was obtained. Prior Anticoagulants: The patient has taken Xarelto (rivaroxaban), last dose was 1 day prior to procedure. ASA Grade Assessment: III - A patient with severe systemic disease. After reviewing the risks and benefits, the patient was deemed in satisfactory condition to undergo the procedure. After I obtained informed consent, the scope was passed under direct vision. Throughout the procedure, the patient's blood pressure, pulse, and oxygen saturations were monitored continuously. The scope was introduced through the anus and advanced to the terminal ileum. The colonoscopy was performed without difficulty. The patient tolerated the procedure well. The quality of the bowel preparation was fair. The colonoscopy was performed without difficulty. Findings: The perianal and digital rectal examinations were normal. A 15 mm polyp was found in the ascending colon. The polyp was flat. The polyp was removed with a piecemeal technique using a hot snare. Resection and retrieval were complete. To prevent bleeding after the polypectomy, two hemostatic clips were successfully placed (MR conditional). There was no bleeding at the end of the procedure. Multiple small-mouthed diverticula were found in the sigmoid colon. Non-bleeding internal hemorrhoids were found during retroflexion. The hemorrhoids were small. Impression: - Preparation of the colon was fair. - One 15 mm polyp in the ascending colon, removed piecemeal using a hot snare. Resected and retrieved. Clips (MR conditional) were placed. - Diverticulosis in the sigmoid colon. - Non-bleeding internal hemorrhoids. Recommendation: - Resume previous diet. - Continue present medications. - Repeat colonoscopy in 1 year for surveillance after piecemeal polypectomy. - Return to primary care physician as previously scheduled. Fadi Lee, DO 05/25/2018 3:30:31 PM This report has been signed electronically. Note Initiated On: 05/25/2018 2:33 PM Number of Addenda: 0 I attest to the content of the Intraoperative Record and orders documented therein, exceptions below {[id number]}
[2018-05-25 15:50] VITALS: BP 139/57; PULSE 64; O2SAT 96
--- NOTE | 2018-05-25 15:57 | Anesthesiology Progress Note ---
Anesthesia Post Op Note Date & Time May 25, 2018 at 15:57 Vital Signs Vital Signs Past 12 Hours Date Time Temp Pulse Resp B/P (MAP) Pulse Ox O2 Delivery O2 Flow Rate FiO2 05/25/18 15:35 63 16 129/74 (92) 96 Room Air 05/25/18 15:20 36.6 70 16 138/82 (100) 96 Room Air 05/25/18 13:50 36.9 76 20 156/106 (123) 94 Room Air Notes Mental Status: alert / awake / arousable, participated in evaluation Pt Amnestic to Procedure: Yes Nausea / Vomiting: adequately controlled Pain: adequately controlled Airway Patency, RR, SpO2: stable & adequate BP & HR: stable & adequate Hydration State: stable & adequate Anesthetic Complications: no major complications apparent
== END | disposition home or self-care (01) ==
LOC: C.GI 12:50
PROVIDERS: ATTEND Internal Medicine
DX: K31.89 Other diseases of stomach and duodenum (principal); D12.2 Benign neoplasm of ascending colon; K64.8 Other hemorrhoids; K29.50 Unspecified chronic gastritis without bleeding; K57.30 Diverticulosis of large intestine without perforation or abscess without bleeding; K44.9 Diaphragmatic hernia without obstruction or gangrene; J45.909 Unspecified asthma, uncomplicated; K21.9 Gastro-esophageal reflux disease without esophagitis; M19.90 Unspecified osteoarthritis, unspecified site; E66.9 Obesity, unspecified; Z90.49 Acquired absence of other specified parts of digestive tract; Z90.710 Acquired absence of both cervix and uterus; Z90.722 Acquired absence of ovaries, bilateral; Z90.79 Acquired absence of other genital organ(s); Z98.1 Arthrodesis status; Z88.0 Allergy status to penicillin; Z88.7 Allergy status to serum and vaccine; Z79.01 Long term (current) use of anticoagulants; Z80.0 Family history of malignant neoplasm of digestive organs

== ENCOUNTER 2020-11-21 08:11 | Observation (INO) ==
--- NOTE | 2020-11-14 09:46 | Anesthesiology Consultation ---
Date of Service November 14, 2020 Assessment & Plan (1) Encounter for pre-operative examination: Chart Review Chart Review: Acceptable Risk for Surgery (pending preop Covid testing ) and Patient NOT seen in Pre Admission Testing - Pt initially scheduled for surgery 09/19/20 but was rescheduled due to Covid surge. Prior to initial surgery date- patient seen in PAT on 08/31/20- patient does admit to [facility]- relieved by anti-nausea IV meds. Per nursing assessment 10/26/20, patient traveled to [place], [place] 10/06/20- 10/08/20 to visit family. Did not wear PPE when with family but does wear PPE in public. No travel since arriving home on 10/08/20. No known Covid positive contacts or Covid related symptoms. Pt scheduled for preop Covid testing 11/14/20 at [facility] will await results. Seen by cardio 06/26/20= dual-chamber pacemakerdevice is functioning normally. Pacing the atrium about 12% and rarely in the ventricle. Paroxysmal atrial tachycardiacontinues to have brief episodes of AT. Rate is elevated with arrhythmia. Will restart metoprolol. Paroxysmal A. fibcontinues to have episodes of A. fib with RVR. Longest episode of A. fib 1 hour and 37 minutes. Will restart metoprolol. Continue Xarelto. Syncopeno further episodes since pacemaker implantation. Palpitationscontinue flecainide as needed. Dizzinessappears most consistent with vertigo. Follow-up with PCP. Follow-up 6 months. History Surgery Operation Date: 11/21/20 07:00 Proposed Procedures p Left Total Knee Arthroplasty - Jamison Esparza MD Height/Weight Height: 5 ft Weight: 90.718 kg Allergies Allergy/AdvReac Type Severity Reaction Status Date / Time lidocaine Allergy Severe ANAPHYLAXIS Verified 10/26/20 09:26 NSAIDS (Non-Steroidal Allergy Severe esophagitis Verified 10/26/20 09:26 Anti-Inflamma thimerosal Allergy Severe ANAPHYLACTI Verified 10/26/20 09:26 C Penicillins Allergy Mild HIVES Verified 10/26/20 09:26 cefazolin Allergy Unknown HIVES Verified 10/26/20 09:26 adhesive AdvReac Unknown TEARING OF Verified 10/26/20 09:26 SKIN, BLISTERS Flu Virus Vaccine Allergy Severe ANAPHYLACTI Uncoded 10/26/20 09:26 C Additional Notes: Surgeon's office was made aware of lidocaine allergy in Aug 2020 when patient's surgery was initially scheduled in Sep 2020. Will also note on OR sheet Medications Home Medications Medication Instructions Recorded Confirmed Last Taken latanoprost 0.005 % eye drops 1 drops OP QPM 06/25/18 10/26/20 Unknown lactobacillus combination no.9 4 4,000 mmu cells PO QAM 05/31/19 10/26/20 Unknown billion cell capsule flecainide 150 mg tablet 150 mg PO Q12H PRN 06/09/19 10/26/20 Unknown gabapentin 300 mg capsule 300 mg PO TID #90 cap 05/23/20 10/26/20 Unknown omeprazole 20 mg capsule,delayed 20 mg PO BID #180 cap 05/23/20 10/26/20 Unknown release cholecalciferol (vitamin D3) 1,250 50,000 unit PO WK #12 cap 05/25/20 10/26/20 Unknown mcg (50,000 unit) capsule rivaroxaban 20 mg tablet 20 mg PO QPM #90 tab 06/26/20 10/26/20 Unknown atorvastatin 10 mg tablet 10 mg PO HS #90 tab 08/29/20 10/26/20 Unknown duloxetine [Cymbalta] 60 mg PO QPM 08/29/20 10/26/20 Unknown mecobalamin (vitamin B12) 1,000 mcg PO QPM 08/29/20 10/26/20 Unknown melatonin 10 mg PO HS 08/29/20 10/26/20 Unknown metoprolol succinate 50 mg PO QAM 08/29/20 10/26/20 Unknown multivitamin 1 tab PO QAM 08/29/20 10/26/20 Unknown methocarbamol 750 mg tablet 750 mg PO DAILY PRN #30 tab 09/14/20 10/26/20 Unknown Past Medical History Medical History (Updated 11/14/20 @ 09:51 by Tiffanie Reece PA-C) Anxiety Atrial fibrillation On Xarelto Atrial tachycardia Follows with cardio- on metoprolol Depression GERD (gastroesophageal reflux disease) Well controlled and stable Hyperglycemia Hgb A1C 6.4 on 11/06/20 Hyperlipidemia Intractable back pain Chronic issue Kidney stones No current issues - chronic right sided kidney stone Migraine HX- NO ISSUES X 20 YEARS On anticoagulant therapy XARELTO DAILY 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 Peripheral neuropathy Schatzki's ring Past Family History Family History Mother Myocardial infarction Renal failure Stroke Diabetes Glaucoma Arthritis Family/Other Cancer Coronary heart disease Hypertension Sister Colorectal cancer Glaucoma IBS (irritable bowel syndrome) Father Traumatic brain injury Alzheimer disease A-fib Hypertension Grandmother (Maternal) Myocardial infarction Grandfather (Maternal) Arthritis Grandmother (Paternal) Multiple sclerosis Denies family history of Ovarian cancer Prostate cancer Breast cancer Past Surgical History Surgical History H/O: hysterectomy MITA with BSO History of cardiac cath [id number] STENTS [facility] History of colonoscopy History of cystoscopy WITH STENTS History of esophageal dilatation History of esophagogastroduodenoscopy (EGD) History of lumbar fusion Hx of total knee arthroplasty RIGHT 2013 Nausea and vomiting after administration of anesthetic agent S/P cholecystectomy Social History Smoking Status: Never smoker Do You Dip or Chew Tobacco: No Hx Alcohol Use: No Hx Substance Use: No substance use type: does not use Testing Laboratory Results Blood Type B Positive 11/06/20 09:35 Antibody Screen NEGATIVE 11/06/20 09:35 Laboratory Tests 11/06/20 11/06/20 11/06/20 09:33 09:33 09:33 WBC 6.00 Hgb 13.5 Hct 42.5 Plt Count 218 PT INR Sodium 145 Potassium 3.8 Chloride 112 H Carbon Dioxide 30 BUN 18 Creatinine 0.84 Glucose 121 H Hemoglobin A1c 6.4 H 11/06/20 09:35 WBC Hgb Hct Plt Count PT 14.0 H INR 1.3 H Sodium Potassium Chloride Carbon Dioxide BUN Creatinine Glucose Hemoglobin A1c Electrocardiogram Date: 08/31/20 Atrial paced rhythm at 70 bpm. Left axis deviation. Low voltage QRS. Cannot rule out anterior infarct. When compared to EKG from January 07, 2018- electronic atrial pacemaker has replaced sinus rhythm per cardio. (By personal visual inspection- PRWP/cannot r/o anterior UT present since at least 2014) Chest X-Ray Date: 08/31/20 Findings: + NAD A dual lead right subclavian pacemaker is in place. Linear bilateral opacities reflect atelectasis or scarring Other Testing Per cardio office on 09/01/20- no recent pacemaker report available. Pacemaker most recently checked during cardio visit on 06/26/20= per cardio note "I reviewed the results of her device interrogation performed today. She continues to have brief episodes of atrial tachycardia and atrial fibrillation. Her longest episode of atrial fibrillation was 1 hour 37 minutes. She is pacing in the atrium 12% of the time and rarely in the ventricle. Estimated battery longevity is 2.5 years." Patient does have [employer]onic pacemaker. (no report available- last full report on file from 2018)
--- NOTE | 2020-11-15 13:01 | History and Physical Report ---
DATE OF ADMISSION: 11/21/2020 CHIEF COMPLAINT: Left knee pain and discomfort. HISTORY OF PRESENT ILLNESS: The patient is a 69-year-old female who is well known to me from her previous right knee replacement done on 07/05/2013. Over the past several years, she has developed increased pain and discomfort in her left knee. She has been through extensive conservative treatment including medicines and injections, which really have not helped much lately. The right knee is doing well. She is limited by her left knee pain. She has to use a cane to get around and done so for the past 9 months. The more as the day goes on, the more she limps. She would like to have her knee fixed. PAST MEDICAL HISTORY: Significant for, 1. Atrial fibrillation with a pacemaker in place and on Xarelto. 2. Elevated cholesterol. 3. History of back surgery. 4. Sciatica. 5. Gastroesophageal reflux disease. 6. Hiatal hernia. PAST SURGICAL HISTORY: Includes, 1. Hysterectomy. 2. BSO. 3. Cholecystectomy. 4. Right total knee replacement done on 07/05/2013. ALLERGIES: PENICILLIN AND ANCEF, WHICH CAUSE HIVES. SHE DOES NOT DO WELL WITH NSAIDS. CURRENT MEDICATIONS: Include, 1. Atorvastatin. 2. Vitamin D3. 3. Cymbalta. 4. Flecainide. 5. Gabapentin. 6. Lactobacillus. 7. Xalatan eye drops. 8. Vitamin B12. 9. Methocarbamol. 10. Metoprolol. 11. Centrum Silver. 12. Omeprazole. 13. Xarelto 20 mg a day. SOCIAL HISTORY: A 69-year-old female. She lives in [place]. Does not smoke. No significant alcohol intake. FAMILY HISTORY: Noncontributory. REVIEW OF SYSTEMS: Significant for atrial fibrillation, on Xarelto. Denies any current chest pain or shortness of breath. No history of DVT or PE. No known bleeding problems. PHYSICAL EXAMINATION: GENERAL: Shows a pleasant, middle-aged female. Looks to be in pretty good health. HEENT: Benign. NECK: Supple, no lymphadenopathy. LUNGS: Clear to auscultation. HEART: Has a regular rate and rhythm. ABDOMEN: Soft, nontender, nondistended. EXTREMITIES: Grossly neurovascularly intact except as follows: Examination of the left knee reveals the patient walks with use of a cane. She has got moderate soft tissue envelope. The knee looks fairly well aligned. She is tender over the medial joint line. She has got a small knee effusion. Range of motion about 5 degrees short of full extension to 115 degrees of flexion. There is no instability. Examination of the right knee reveals a well-healed incision. Knee alignment looks anatomic. Range of motion 0-120. No instability. No swelling. X-RAYS: X-rays of the left knee were reviewed. It shows advanced left knee DJD. She has complete loss of her medial joint space. She has got diffuse osteopenia. She does have patellofemoral arthritis as well. The right knee replacement looks to be in good position and doing well. ASSESSMENT: A 69-year-old white female, now a 7+ years out from a right knee replacement, with advanced left knee degenerative joint disease. She has failed conservative treatment and would like to have her left knee replaced. PLAN: We are going to take her to the operating room and do a left total knee replacement. The risks and benefits of this procedure were explained to the patient including but not limited to DVT, PE, , infection, neurological injury, vascular injury, bleeding problem, pain, limited range of motion, stiffness, failure to relieve her symptoms, incomplete relief of symptoms, need for further surgery in the future, fracture, leg length inequality, nerve palsy, etc. The patient understands and desires to proceed. Informed consent was obtained. The patient was previously scheduled for surgery, but it was canceled due to the COVID issues. There has been no interval change in her medical situation. The patient is on Xarelto and she will stop that 72 hours preop. We will start her on prophylactic dose 24 hours postop. She should take her metoprolol the morning of surgery. She is planning to be discharged to home. She will likely do outpatient therapy.
[~2020-11-21 08:11] MED LIST changes: +ACETAMINOPHEN 500 MG TAB PO SCH; +BUPIVACAINE 0.5 % 5 MG/1 ML PF 10ML VIAL ONE; -DULO60CA44 PO; +FAMOTIDINE 20 MG TAB PO SCH; -FLEC150T PO; -GABA-112 PO; -LATA0.009 OPB; +LR 500ML BOLUS, THEN 15ML/HR IV SCH; +LR 60ML/HR IV SCH; -MIDAZOLAM HCL 1 MG/ML 2ML VIAL ONE; -MISCCAP80 PO; -ONDANSETRON INJ 2 MG/ML 2 ML VIAL IV ONE; -ONDANSETRON INJ 2 MG/ML 2 ML VIAL ONE; -PRLSR20 PO; -PROPOFOL IV EMULSION 10 MG/ML 20 ML VIAL ONE; -RANI300T2 PO; +ROPIVACAINE 0.5% 5 MG/ML 30 ML VIAL ONE; -SODIUM CHLORIDE 0.9% 500ML 500 ML IV ONE; -TPRSR/100 PO; +TRANEXAMIC ACID 1,000 MG **IV Intra-op IV SCH; +VANCOMYCIN HCL 1,500 MG in SODIUM CHLORIDE 0.9% 500 ML IV SCH; -XRL20 PO; +ceFAZolin 2000MG 2,000 MG/15 ML SYR IV SCH; +dexAMETHasone 4 MG TAB PO SCH
--- NOTE | 2020-11-21 08:32 | History & Physical Bridge Note ---
Date of Service November 21, 2020 History & Physical Bridge Note I have examined the patient, reviewed the History & Physical and in the interval since the performance of the History & Physical I have noted the following changes of clinical significance: no changes noted
[2020-11-21] MEDS ORDERED: fentaNYL citrate 100 MCG/2 ML VIAL ONE ×2 (09:14→11:12)
[2020-11-21] MEDS ORDERED: ePHEDrine sulfate 50 MG/ML SYR ONE (09:14)
[2020-11-21] MEDS ORDERED: PROPOFOL IV EMULSION 10 MG/ML 20 ML VIAL IV ONE (09:14)
[2020-11-21] MEDS ORDERED: PHENYLEPHRINE 100MCG/ML 5ML SYR ONE (09:14)
[2020-11-21] MEDS ORDERED: MIDAZOLAM HCL 1 MG/ML 2ML VIAL ONE (09:14)
[2020-11-21] MEDS ORDERED: ONDANSETRON INJ 2 MG/ML 2 ML VIAL IV PRN ×2 (10:02→14:05)
[2020-11-21] MEDS ORDERED: HYDROmorphone INJ 2 MG/ML SYR/VIAL IV PRN (10:02)
[2020-11-21] MEDS ORDERED: ATROPINE SULFATE 0.1 MG/ML 10ML SYR IV PRN (10:02)
[2020-11-21] MEDS ORDERED: ePHEDrine sulfate 50 MG/ML AMP IV PRN (10:02)
[2020-11-21] MEDS ORDERED: PROMETHAZINE HCL 12.5 MG in SODIUM CHLORIDE 0.9% 50 ML IV PRN (10:02)
[2020-11-21] MEDS ORDERED: fentaNYL citrate 100 MCG/2 ML VIAL IV PRN (10:02)
[2020-11-21] MEDS ORDERED: METOCLOPRAMIDE HCL INJ 5 MG/ML 2 ML VIAL IV PRN ×2 (10:02→14:05)
[2020-11-21] MEDS ORDERED: KETOROLAC 30 MG/ML VIAL IV PRN (10:02)
[2020-11-21] MEDS ORDERED: BACITRACIN INJ 50,000 UNIT VIAL ONE (10:14)
[2020-11-21] MEDS ORDERED: BUPIVACAINE LIPOSOME 1.3% 266 MG/20 ML VIAL ONE (10:14)
[2020-11-21] MEDS ORDERED: BUPIVACAINE 0.25% 30 ML VIAL ONE (10:14)
[2020-11-21] MEDS ORDERED: SODIUM CHLORIDE 0.9% PF 50 ML VIAL ONE (10:14)
[2020-11-21] MEDS ORDERED: EPINEPHrine INJ 1 MG/ML AMP ONE (10:14)
[2020-11-21] MEDS ORDERED: GLYCOPYRROLATE 0.2 MG/ML VIAL ONE (11:12)
[2020-11-21] MEDS ORDERED: ONDANSETRON INJ 2 MG/ML 2 ML VIAL ONE (11:12)
[2020-11-21] MEDS ORDERED: NEOSTIGMINE METHYLSULFATE 5 MG/5 ML SYR ONE (11:12)
[2020-11-21] MEDS ORDERED: ROCURONIUM BROMIDE 10 MG/ML 5 ML VIAL IV ONE (11:12)
--- NOTE | 2020-11-21 12:49 | Operative Report ---
Post Operative Report Pre & Post Diagnosis Operation Date: 11/21/20 10:40 Pre-Op Diagnosis: Left Knee Advanced Degenerative Joint Disease Post-Op Diagnosis: Left Knee Advanced Degenerative Joint Disease I identified the patient and participated in the time-out.: Yes Procedure Operation Date: 11/21/20 10:40 Actual Procedures p Left Total Knee Arthroplasty(Left) - Jamison Esparza MD Surgeon Jamison Esparza MD Candy Butcher FARHAN Khan Estimated Blood Loss 50 Findings Consistent with Post-Op Diagnosis Operative findings revealed advanced left knee DJD. She had extensive grade 4 [id number] disease of the medial and patellofemoral compartments. She had diffuse osteopenia. Moderate-sized joint effusion. Fluids 1500 cc. Specimens Left knee sent for pathology. Drains None. Anesthesia Type General Regional Complications none Disposition Accompanied Patient To Recovery: No Disposition: Recovery Room Indications Patient is a 69-year-old female has had a long history of knee problems. She has been through extensive conservative treatment the past. She had a right knee replaced about 7 years ago and is done well from this. Over the years she developed increased pain discomfort and deformity in her left knee. X-ray showed advanced DJD. She failed conservative measures. She elected proceed with left total knee arthroplasty. Description of Procedure Operative implants consist of: 1. Biomet Vanguard size 62.5 left posterior stabilized femoral component. 2. Biomet size 67 tibial tray. 3. 10 mm posterior stabilized polyethylene insert. 4. 28 x 8 all polypatella. The patient was taken to the operating identified and placed on the operating table supine position but all contact areas were properly padded. IV antibiotics tried by anesthesia team. A abductor canal block had provided holding area. A general anesthetic was implemented at the patient's request. A Lria catheter was placed in sterile fashion. A left thigh turn was then placed in the left lower extremity was then prepped and draped in usual sterile fashion. The left leg was elevated exsanguinated with use of an Esmarch and tourniquet placed at 300 mmHg. An anterior approach to the left knee was then performed through longitudinal incision centered over the patella. Sharp dissection was got through subcutaneous tissue down to the extensor mechanism. She had fairly thick soft tissue envelope particularly inferiorly. Her quad tendon was was present in the layers is separate tendons themselves and nonadherent. A medial parapatellar arthrotomy incision was made leaving portions of both the medial lateral aspect intact to a later repair. Subperiosteal dissection was carried out medially. The fat pad was resected from each patella tendon. The lateral patellofemoral ligament was released. Patella was subluxated laterally and the knee was flexed. The osteophytes were taken off distal femur P the ACL and PCL were then released in the distal femur the tibia subluxated anteriorly. The external treatment line jig was then placed in the interface the tibia and adjusted 14 mm medially. Proximal tibial cut was made to move out 2 to 3 mm of bone from the medial side. She was very osteopenic. The tibia sized to a size 67. I tried to maximize my coverage due to her osteopenia. Attention drawn the femur. The distal femur turned the sharp drill. Intramedullary canal was suction. A left 5 degree valgus cutting guide was placed. The distal femoral cutting block was pinned in place but distal femoral cut was made to take an additional 3 mm of bone off distal femur. The femur was then sized to a size 62.5. We downsized this slightly. The AP cutting block was pinned parallel to the epicondylar axis which was 5 degrees of external rotation. The anterior cut, anterior chamfer, posterior cut, posterior chamfer cuts were made. Box cutting guide was placed in just slight lateral box cut was made. The knee was flexed. The remnants of the medial lateral menisci were excised. The osteophytes were taken off the posterior aspect the femur. A trial femoral component was placed. The tibial tray was pinned in maximum external rotation and the drill and stem punch were used to create defect in proximal to for the tibial tray. The knee was then trialed and 10 mm insert fit most appropriately. Attention drawn the patella. Patella was cleaned of all soft tissues. Patella was quite thinned and worn. It measured 18 mm in thickness was cut down to 13. Was sized to a size 28 patella. The locals were drilled for the 28 patella. The lateral osteophyte is moved. Patella button was placed. Knee was taken through range of motion patella tracked nicely with no thumbs test. Attention drawn to placing the permanent components. All trial components were removed. A bone plug was placed in the distal femur limit blood loss. A double batch Palacos G cement was mixed. A Biomet Vanguard size 62.5 left posterior stabilized femoral component, size 67 tibial tray, 10 mm posterior stabilized polyethylene insert, and a 28 x 8 all polypatella were then cemented in place. Knee was brought out in full extension total cement hardened. Final cement check was then performed. The pericapsular tissues were injected with total 100 cc of combination of 20 cc of Exparel, 30 cc normal saline, 50 cc of quarter percent Marcaine with epinephrine. Patient did receive 1 g tranexamic acid. The tourniquet was then let down for final tourniquet time 59 minutes. Hemostasis assured use electrocautery. The extensor mechanism closed with combination 1 PDS suture #1 Vicryl suture in [id number] fashi on. The extensor mechanism checked found to be intact and the subcutaneous tissue then closed with 2 Dexon suture in a buried interrupted fashion skin was closed skin domenica. Leg was then cleaned and dried a sterile dressing composed Xeroform, 4 x 4's, sterile cast padding, a ABD pad and and Antony bandage were applied. The patient was then brought out of general anesthesia and transferred to the recovery room in stable condition. The patient tolerated the procedure well and there were no complications. Gene Khan, my physician speech pathology assistant, was present for the entire procedure. His assistance was essential and required for appropriate patient positioning, prepping and draping, surgical exposure, performing the technical details of the operation, placement the implants, closure of the wound, and placement of the sterile bandage. I attest to the content of the Intraoperative Record and any orders documented therein. Any exceptions are noted below.
--- NOTE | 2020-11-21 13:11 | XRay Report ---
LEFT KNEE 2 VIEWS History: Left total knee arthroplasty. Degenerative arthritis. Postop. FINDINGS: The patient is status post a left total knee arthroplasty. The hardware is intact. Question able lucency through the fibular neck on the lateral view is not confirmed on the AP view. This could be due to overlapping soft tissue gas rather than a fracture. Skin domenica are in place. IMPRESSION: Left total knee arthroplasty. Questionable lucency at the fibular neck is likely due to overlapping s oft tissue gas rather than a fracture. If the patient is complaining of pain at the fibular neck, the n consider follow-up dedicated radiographs for further evaluation. ACT 112: Negative or not required by law. Electronically signed by: Galo Zavala M.D. 11/21/2020 1:10 PM
--- NOTE | 2020-11-21 13:53 | Anesthesiology Progress Note ---
Date of Service November 21, 2020 Anesthesia Post Procedure Vital Signs Vital Signs: Temp Pulse Pulse Resp BP Pulse Ox 11/21/20 13:50 36.4 C L 66 16 123/85 98 11/21/20 13:35 68 22 145/76 H 95 11/21/20 13:20 36.2 C L 64 20 140/75 95 11/21/20 13:10 65 16 132/78 94 11/21/20 13:00 69 19 143/84 H 97 11/21/20 12:50 68 24 144/75 H 96 11/21/20 12:40 71 12 129/66 93 11/21/20 12:34 36.1 C L 95 H 16 138/77 92 11/21/20 09:09 158/90 H 11/21/20 08:54 36.8 C 80 20 151/106 H 98 Pain Intensity Left Knee: Pain Intensity: 2 Transfer of Care Handoff Completed per policy Notes Mental Status: alert / awake / arousable and participated in evaluation Patient Amnestic to Procedure: Yes Nausea / Vomiting: adequately controlled Pain: adequately controlled Airway Patency, RR, SpO2: stable & adequate BP & HR: stable & adequate Hydration State: stable & adequate Anesthetic Complications: no major complications apparent
[2020-11-21] MEDS ORDERED: bisacodyL 10 MG SUPP PR PRN (14:05)
[2020-11-21] MEDS ORDERED: KETOROLAC TROMETHAMINE 15 MG/ML VIAL IV SCH (14:05)
[2020-11-21] MEDS ORDERED: METHOCARBAMOL 750 MG TABLET PO PRN (14:05)
[2020-11-21] MEDS ORDERED: MAGNESIUM HYDROXIDE SUSP 30 ML UDC PO PRN (14:05)
[2020-11-21] MEDS ORDERED: NALOXONE HCL 0.4 MG/1 ML VIAL/CARP IV PRN (14:05)
[2020-11-21] MEDS ORDERED: ALUMINUM/MAGNESIUM SUSP 30 ML UDC PO PRN (14:05)
[2020-11-21] MEDS ORDERED: VANCOMYCIN CONSULT ACTIVE PRN (14:05)
[2020-11-21] MEDS ORDERED: HYDROmorphone INJ 0.5 MG/0.5 ML SYR IV PRN (14:05)
[2020-11-21] MEDS: ACETAMINOPHEN 500 MG TAB PO SCH ×2 (14:22→21:21)
[2020-11-21] MEDS: SODIUM CHLORIDE 0.9% 1000ML 1,000 ML IV SCH (14:23)
[2020-11-21] MEDS ORDERED: FLECAINIDE ACETATE 100 MG TABLET PO PRN (14:36)
[2020-11-21] MEDS ORDERED: diphenhydrAMINE Capsule 25 MG CAP PO PRN (14:43)
[2020-11-21] MEDS ORDERED: ACETAMINOPHEN 500 MG TAB PO PRN (14:44)
[2020-11-21] MEDS: oxyCODONE HCL IR 5 MG TAB (IMMEDIATE RELEASE) PO PRN (14:53)
[2020-11-21] MEDS: FERROUS GLUCONATE 324 MG TAB PO SCH (15:49)
[2020-11-21] MEDS: GABAPENTIN 300 MG CAP PO SCH ×2 (15:49→21:21)
[2020-11-21] MEDS: ASCORBIC ACID 500 MG TAB PO SCH (15:49)
[2020-11-21] MEDS: Scopolamine CHECK PATCH PLACEMENT SCH ×2 (15:50→23:03)
[2020-11-21] MEDS ORDERED: PNEUMOCOCCAL Polysaccharide Vaccine 25mcg/0.5mL vial/Syr IM ONE (18:00)
[2020-11-21] MEDS ORDERED: Nursing to Pharmacy Communication SCH (19:15)
[2020-11-21] MEDS: TAPENTADOL HCL ER 50 MG TABCR PO SCH (20:14)
[2020-11-21] MEDS ORDERED: VANCOMYCIN HCL 1,500 MG in SODIUM CHLORIDE 0.9% 500 ML IV SCH (21:00)
[2020-11-21] MEDS: DOCUSATE SODIUM 100 MG CAP PO SCH (21:21)
[2020-11-21] MEDS: MELATONIN 3 MG TAB PO SCH (21:21)
[2020-11-21] MEDS: SENNA 8.6 MG TAB PO SCH (21:21)
[2020-11-21] MEDS: LATANOPROST 0.005% OP SOLN 2.5 ML BTL OP SCH (21:21)
[2020-11-21] MEDS: DULoxetine HCL 60 MG CAP PO SCH (21:21)
[2020-11-21] MEDS: ATORVASTATIN 10 MG TAB PO SCH (21:21)
[2020-11-21] MEDS: PANTOprazole 40 MG TAB PO SCH (21:21)
[2020-11-21] MEDS: CYANOCOBALAMIN 500 MCG TABLET (VITAMIN B-12) PO SCH (21:21)
--- NOTE | 2020-11-21 21:45 | Progress Notes ---
DATE: 11/21/2020 SUBJECTIVE: A 69-year-old white female postop from a left knee replacement. She is doing pretty well. Just starting to have some pain. She did ask for some pain medicine. No chest pain or shortness of breath. Not feeling dizzy or lightheaded. OBJECTIVE: VITAL SIGNS: Temperature 36.3. Vital signs stable. GENERAL: Shows a pleasant, middle-aged female. She is lying in bed and looks pretty comfortable. LUNGS: Clear to auscultation. HEART: Has a regular rate and rhythm. ABDOMEN: Soft, nontender, nondistended. EXTREMITIES: Grossly neurovascularly intact except as follows: Examination of the left leg reveals the leg to be well aligned. Dressing is clean, dry and intact. She can dorsiflex and plantarflex her foot appropriately. She is neurologically intact. X-RAYS: X-rays of the left knee from Recovery Room were reviewed. Fairly poor quality films. No signs of problems. There was some question of fibular fracture, but there are no signs of that in my opinion. ASSESSMENT: A 69-year-old female postop from a left knee replacement. She is doing pretty well. Pain is controlled. She is neurologically intact. PLAN: 1. Deep venous thrombosis prophylaxis including thigh-high TEDs, SCDs, and we will put her back on her Xarelto. She ____ starting 24 hours postoperative until discharge and then a therapeutic dose after that. 2. PT/OT. Weight bear as tolerated. Left total knee protocol. 3. Pain control, doing well with current pain regimen. 4. IV antibiotics x24 hours. 5. Disposition: Plan to discharge to home and she is going to do outpatient therapy.
[2020-11-22] MEDS: SODIUM CHLORIDE 0.9% 1000ML 1,000 ML IV SCH (03:41)
[2020-11-22 05:59] LABS: Hematocrit (blood only) 34.3 % (37-47); Hemoglobin 11.2 g/dL (12.0-16.0); Mean Corpuscular Hemoglobin 30.4 pg (25-34); Mean Corpuscular Hgb Conc 32.7 g/dL (32-36); Mean Corpuscular Volume 93.2 fL (80-100); Mean Platelet Volume 11.1 fL (7.4-10.4); Platelet Count 197 K/uL (130-400); RDW Coefficient of Variation 13.5 % (11.5-14.5); RDW Standard Deviation 46.1 fL (36.4-46.3); Red Blood Count 3.68 M/uL (4.2-5.4); White Blood Count 14.88 K/uL (4.8-10.8)
[2020-11-22 06:23] LABS: BUN Creatinine Ratio 23.2 (10-20); Calcium 8.3 mg/dl (8.5-10.1); Creatinine Clr Calc Pharmacy 70.4 ml/min; Est GFR (African American) 89.9; Est GFR (Non-African American) 77.6; Potassium 4.2 mmol/L (3.5-5.1)
[2020-11-22] MEDS: ACETAMINOPHEN 500 MG TAB PO SCH ×3 (06:32→21:54)
[2020-11-22] MEDS ORDERED: dexAMETHasone 4 MG TAB PO SCH (08:00)
[2020-11-22] MEDS: oxyCODONE HCL IR 5 MG TAB (IMMEDIATE RELEASE) PO PRN ×3 (08:04→23:23)
[2020-11-22] MEDS: FERROUS GLUCONATE 324 MG TAB PO SCH ×2 (08:44→17:12)
[2020-11-22] MEDS: DOCUSATE SODIUM 100 MG CAP PO SCH ×2 (08:44→21:54)
[2020-11-22] MEDS: METOPROLOL SUCC 50MG EXT REL TAB PO SCH (08:44)
[2020-11-22] MEDS: ASCORBIC ACID 500 MG TAB PO SCH ×2 (08:44→17:12)
[2020-11-22] MEDS: GABAPENTIN 300 MG CAP PO SCH ×3 (08:44→21:54)
[2020-11-22] MEDS: MULTIVITAMIN TAB PO SCH (08:44)
[2020-11-22] MEDS: PANTOprazole 40 MG TAB PO SCH ×2 (08:45→21:55)
[2020-11-22] MEDS: ADVANCED PROBIOTIC 1250 MG CAPSULE PO SCH (08:45)
[2020-11-22] MEDS: Scopolamine CHECK PATCH PLACEMENT SCH ×2 (08:46→15:06)
[2020-11-22] MEDS ORDERED: MULTIVITAMIN TAB PO SCH (09:00)
[2020-11-22] MEDS: TAPENTADOL HCL ER 50 MG TABCR PO SCH ×2 (09:42→20:01)
--- NOTE | 2020-11-22 13:10 | Progress Notes ---
DATE: 11/22/2020 SUBJECTIVE: A 70-year-old white female postop day 1 from left knee replacement. She is doing pretty well. Pain has been reasonably well controlled. No chest pain or shortness of breath. Not feeling dizzy or lightheaded. OBJECTIVE: VITAL SIGNS: Temperature 36.8. Vital signs are stable. GENERAL: Shows a pleasant, middle-aged female. She is sitting up in bed this morning and looks pretty good and comfortable. EXTREMITIES: Examination of the left leg reveals the leg to be well aligned. Dressing is clean, dry and intact. She can dorsiflex and plantarflex her foot appropriately. She is neurologically intact. LABORATORY DATA: Hemoglobin 11.2. Hematocrit 34.3. Electrolytes are stable. ASSESSMENT: A 70-year-old white female postoperative day 1 from a left knee replacement, doing pretty well. Pain has been reasonably well controlled. She is neurologically intact. PLAN: 1. DVT prophylaxis including thigh-high TEDs, SCDs, and she is back on her Xarelto at a prophylactic dose level for now. We will discharge her on a therapeutic dose. 2. PT/OT. Weight bear as tolerated. Left total knee protocol. 3. Pain control, doing okay with current pain regimen. 4. Disposition: She is planning to be discharged to home and she is going to do outpatient therapy once medically stable and her pain is controlled and getting around safely.
[2020-11-22] MEDS: RIVAROXABAN 10 MG TABLET PO SCH (13:41)
[2020-11-22] MEDS ORDERED: ERGOCALCIFEROL 50,000 UNITS 1250 MCG CAP PO SCH (16:30)
[2020-11-22] MEDS: MELATONIN 3 MG TAB PO SCH (21:54)
[2020-11-22] MEDS: SENNA 8.6 MG TAB PO SCH (21:54)
[2020-11-22] MEDS: DULoxetine HCL 60 MG CAP PO SCH (21:55)
[2020-11-22] MEDS: CYANOCOBALAMIN 500 MCG TABLET (VITAMIN B-12) PO SCH (21:55)
[2020-11-22] MEDS: ATORVASTATIN 10 MG TAB PO SCH (21:55)
[2020-11-22] MEDS: LATANOPROST 0.005% OP SOLN 2.5 ML BTL OP SCH (21:56)
[2020-11-23] MEDS: Scopolamine CHECK PATCH PLACEMENT SCH ×2 (00:04→08:12)
[2020-11-23] MEDS: ACETAMINOPHEN 500 MG TAB PO SCH (06:23)
[2020-11-23] MEDS: ASCORBIC ACID 500 MG TAB PO SCH (08:11)
[2020-11-23] MEDS: MULTIVITAMIN TAB PO SCH (08:11)
[2020-11-23] MEDS: METOPROLOL SUCC 50MG EXT REL TAB PO SCH (08:11)
[2020-11-23] MEDS: FERROUS GLUCONATE 324 MG TAB PO SCH (08:11)
[2020-11-23] MEDS: TAPENTADOL HCL ER 50 MG TABCR PO SCH (08:11)
[2020-11-23] MEDS: oxyCODONE HCL IR 5 MG TAB (IMMEDIATE RELEASE) PO PRN (08:11)
[2020-11-23] MEDS: RIVAROXABAN 10 MG TABLET PO SCH (08:12)
[2020-11-23] MEDS: ADVANCED PROBIOTIC 1250 MG CAPSULE PO SCH (08:12)
[2020-11-23] MEDS: PANTOprazole 40 MG TAB PO SCH (08:12)
[2020-11-23] MEDS: DOCUSATE SODIUM 100 MG CAP PO SCH (08:12)
[2020-11-23] MEDS: GABAPENTIN 300 MG CAP PO SCH (08:12)
--- NOTE | 2020-11-23 08:36 | Progress Notes ---
DATE: 11/23/2020 SUBJECTIVE: A 70-year-old white female postop day 2 from a left knee replacement. She is doing pretty well. Had a reasonable day yesterday. Pain has been reasonably well controlled. No chest pain or shortness of breath. Not feeling dizzy or lightheaded. OBJECTIVE: VITAL SIGNS: Temperature 36.3. Vital signs stable. GENERAL: Shows a pleasant, middle-aged female. She is sitting up in her bedside chair, looks comfortable. EXTREMITIES: Examination of the left leg reveals the dressing to be clean, dry and intact. Leg is well aligned. Calf is soft and supple. She can dorsiflex and plantarflex her foot appropriately. LABORATORY DATA: None. ASSESSMENT: A 70-year-old white female postop day 2 from left knee replacement, doing pretty well. Pain is controlled. She is neurologically intact. PLAN: 1. DVT prophylaxis including thigh-high TEDs, SCDs, and Xarelto. She is on a prophylactic dose today and then a therapeutic dose starting tomorrow. 2. PT/OT. Weight bear as tolerated. Left total knee protocol. 3. Pain control, doing well with current pain regimen. 4. Disposition: Plan is to discharge to home and she is going to do outpatient therapy.
--- NOTE | 2020-11-27 15:14 | Discharge Summary ---
Date of Service November 27, 2020 Discharge Data Consultations 11/21/20 14:05 Consult Case Management - Discharge Planning Routine Procedures Performed Operation Date: 11/21/20 10:40 Actual Procedures p Left Total Knee Arthroplasty(Left) - Jamison Esparza MD Hospital Course (1) Status post total left knee replacement: This patient is a 70 year old female admitted on 11/21/20 and underwent total knee arthroplasty. She tolerated the procedure well and there were no complications. Transferred to the PACU post op and later to the orthopedic floor for further care. She was given vancomycin for antibiotic prophylaxis. She was also given TISHA stockings, SCDs, and xarelto for DVT prophylaxis. Hemoglobin, he matocrit, and vital signs were monitored during her hospital stay and remained stable. Did not require any blood transfusions. There were no complications during her hospital stay. By post op day #2 the patient was tolerating a regular diet, pain was reasonably controlled with oral pain medicine, and she was participating in physical therapy. On post op day #2 the patient was discharged home and set up with home health care. She was given printed discharge instructions including prescriptions for extra strength tylenol and oxycodone. Continue physical therapy, weight bearing as tolerated. Continue TISHA stockings. Follow up approximately 2 weeks post op or sooner if there are problems or concerns. Coding Level of Care Code None Diagnoses Status post total left knee replacement Z96.652
== END 2020-11-23 11:14 | disposition home or self-care (01) ==
LOC: 3E 08:11 → ASU 08:11

== ENCOUNTER 2024-12-08 15:18 | Inpatient (IN) ==
[2024-12-08 16:07] LABS: Basophils # (auto) 0.06 K/uL (0.00-0.20); Basophils % (auto) 0.7 %; Eosinophils # (auto) 0.74 K/uL (0.00-0.50); Eosinophils % (auto) 9.2 %; Hematocrit (blood only) 40.9 % (37.0-47.0); Hemoglobin 13.3 g/dl (12.0-16.0); Immature Granulocytes # (auto) 0.04 K/uL (0.01-0.20); Immature Granulocytes % (auto) 0.5 %; Lymphocytes # (auto) 0.88 K/uL (1.20-3.40); Lymphocytes % (auto) 10.9 %; Mean Corpuscular Hemoglobin 29.4 pg (25.0-34.0); Mean Corpuscular Hgb Conc 32.5 g/dL (32.0-36.0); Mean Corpuscular Volume 90.5 fL (80.0-100.0); Mean Platelet Volume 10.4 fL (9.4-12.4); Monocytes # (auto) 0.79 K/uL (0.11-0.59); Monocytes % (auto) 9.8 %; Neutrophils # (auto) 5.56 K/uL (1.40-6.50); Neutrophils % (auto) 68.9 %; Platelet Count 181 K/uL (130-400); RDW Coefficient of Variation 14.6 % (11.5-14.5); RDW Standard Deviation 48.2 fL (36.4-46.3); Red Blood Count 4.52 M/uL (4.20-5.40); White Blood Count 8.07 K/ul (4.8-10.8)
[2024-12-08 16:21] LABS: Alanine Aminotransferase 12 U/L (7-52); Albumin Globulin Ratio 1.4 (0.9-2); Albumin Level 3.7 gm/dl (3.4-5.0); Alkaline Phosphatase 115 U/L (34-104); Anion Gap 6 (3-11); Aspartate Aminotransferase 17 U/L (13-39); Bilirubin,Total 1.1 mg/dl (0.2-1.0); Blood Urea Nitrogen 28 mg/dl (6-23); Calcium 9.5 mg/dl (8.6-10.3); Carbon Dioxide 27 mmol/L (21-32); Chloride 105 mmol/L (98-107); Globulin 2.7 gm/dl (2.5-4.0); Glucose 83 mg/dl (70-99(Fasting)); Potassium 4.4 mmol/L (3.5-5.1); Sodium 138 mmol/L (136-145); Total Protein 6.4 gm/dl (6.0-8.3)
--- NOTE | 2024-12-08 16:24 | Emergency Department Note ---
Impression & Plan Peritonsillar abscess, Facial cellulitis, Abscess, dental ED Provider Note CHIEF COMPLAINT: Dental infection, facial swelling HISTORY OF PRESENTING ILLNESS: The patient is a 74-year-old female who arrives to the emergency department for evaluation of dental pain, and facial swelling. She reports she has a known dental issue, and has an appointment. She reports she is scheduled to have teeth removed on 12/20/2024, however swelling redness and pain has increased since last night. She reports she took Tylenol at 8:00 this morning, which did not help her symptoms. She reports trismus, without difficulty managing secretions. REVIEW OF SYSTEMS: See HPI for pertinent positives and pertinent negatives. ALLERGIES: See below MEDICATIONS: See below PAST MEDICAL HISTORY: See below PHYSICAL EXAM: VITALS: Vitals are noted on the nurse's note and reviewed by myself. Vital signs stable. GENERAL: 74-year-old female, in no acute distress, nondiaphoretic, well- developed well-nourished. SKIN: Erythema, edema, present to the right cheek of the face extending to the preseptal region. HEAD: Normocephalic atraumatic. EYES: Pupils equal round and reactive to light and accommodation. Conjunctivae without injection, sclerae without icterus. Extraocular movements intact. NOSE: Patent, turbinates without inflammation or discharge. No sinus tenderness. MOUTH: Mucous membranes moist. Right tonsillar hypertrophy noted. Pharynx without erythema or exudate. Uvula midline. Airway patent. Tongue does not deviate. Multiple decayed and fractured teeth noted throughout the mouth, erythema and edema present to the right upper gumline. Trismus noted. NECK: Supple without nuchal rigidity. Right cervical lymphadenopathy. HEART: Regular rate and rhythm without murmurs gallops or rubs. LUNGS: Clear to auscultation bilaterally without wheezes, rales or rhonchi. No retractions or accessory muscle use. NEURO: Patient was alert and oriented to person place and time. No focal neurological deficits. DIFFERENTIAL DIAGNOSIS: Dental caries, dental abscess, Ludwigs angina, Vincent angina, dental fracture, facial cellulitis, parotitis, osteomyelitis, sinus infection, peritonsillar abscess. ED COURSE AND MEDICAL DECISION MAKING: MEDICATIONS GIVEN: 900 mg IV clindamycin INTERPRETATION OF LABS: I interpreted the labs with full lab results as below in the lab section of this note. Pertinent lab results discussed in the MDM section below. INTERPRETATION OF IMAGING: Imaging studies were interpreted by myself and read by radiology as per the imaging section of this note. CONSULTATIONS: Dr. Jasper Bernard was consulted regarding the patient's CT findings, who stated the patient may be admitted to medicine, and he will likely perform surgical intervention the following day. MDM SUMMARY: The patient is a pleasant, 74-year-old female who arrives to the emergency department for evaluation of the above-stated complaint. Initial workup was performed in triage including a saline lock, CBC, CMP. Lab work shows no leukocytosis, with a stable hemoglobin and hematocrit. CMP shows no concerning findings. CT imaging of the soft tissue of the neck was obtained which per my interpretation shows a left palatine tonsil abscess, as well as an abscess along the area anterior aspect of the right maxillary bone consistent with patient exam findings. Patient was provided IV clindamycin. Contact was made with Dr. Jasper Bernard for consultation, who recommended admit to medicine, IV antibiotics, and likely surgical intervention the following day. Case management was notified of the patient's need for admission, who facilitated contact with the [facility] hospitalist group. Dr. Wright agreed to accept the patient under his care. Please refer to his documentation as well as Dr. Bernard's documentation for further patient workup and treatment. DIAGNOSIS: Dental abscess, preseptal cellulitis, palatine tonsil abscess The patient's case was discussed with Dr. Dixon, who agreed with my evaluation and treatment plan. The chart was completed utilizing [employer] Speech voice recognition software. Grammatical errors, random word insertions, pronoun errors, and incomplete sentences are an occasional consequence of this system due to software limitations, ambient noise, and hardware issues. Any formal questions or concerns about the content, text, or information contained within the body of this dictation should be directly addressed to the provider for clarification. Past Med/Surg History Problem List (Updated 12/13/24 @ 22:33 by SANDRA Madrid) Abscess, dental (Acute) Hypomagnesemia Dyslipidemia Hypertension Facial cellulitis (Acute) Anticoagulant long-term use Facial swelling Abscess of pulp of tooth Peritonsillar abscess (Acute) Calcium nephrolithiasis Hyperglycemia Adenomatous polyp of colon (Acute) Glaucoma (Acute) Long QT syndrome (Acute) Hyperlipidemia (Acute) Vitamin D deficiency disease Vitamin B12 deficiency Atrial fibrillation (Acute) Chronic reflux esophagitis (Acute) Peripheral neuropathy (Acute) Schatzki's ring (Acute) Urge incontinence of urine (Acute) Health care maintenance Crohn's disease (Acute) Gait abnormality (Chronic) Obesity (Chronic) Lumbar post-laminectomy syndrome (Chronic) Lumbago (Chronic) Depression (Chronic) Anxiety (Chronic) Pacemaker (Chronic) SECONDARY TO SINUS NODE DYSFUNCTION---medtronic, implanted 06/19/12 GERD (gastroesophageal reflux disease) (Chronic) Well controlled and stable Medical History (Updated 12/13/24 @ 22:33 by SANDRA Madrid) Hematuria intermittent r/t chronic kidney stones Anxiety Depression Lumbar post-laminectomy syndrome Schatzki's ring Peripheral neuropathy Chronic reflux esophagitis Hyperlipidemia Glaucoma History of colon polyps History of COVID-19 (08/2022) no hosp; resolved Crohn's disease pt states this was an inaccurate diagnosis Pacemaker SECONDARY TO SINUS NODE DYSFUNCTION---medtronic, implanted 06/19/12 Concussion denies Balance disorder Dizziness intermittent Pacemaker lead malfunction lead and battery change 04/2023 [facility] Myofascial pain syndrome Ureterolithiasis hx History of anesthesia reaction BP dropped with hysterectomy Dry heaves occasional Nausea intermittent Kidney stones No current issues - chronic right sided kidney stone On anticoagulant therapy XARELTO DAILY Migraine HX- NO ISSUES X 20 YEARS Left knee DJD Atrial tachycardia Follows with cardio- on metoprolol Atrial fibrillation On Xarelto - follows w/ Dr Mackenzie Surgical History (Updated 12/13/24 @ 10:27 by Dorinda Connell RN) History of incision and drainage (12/10/24) Right Maxillary Incision and Drainage with Extraction of Multiple Teeth (#1,#2,#3,#5,#7,#8,#10,#24,)(Right) - Jasper Bernard, DMD History of total left knee replacement Status post total left knee replacement November 21, 2020/Dr. Esparza History of esophageal dilatation Nausea and vomiting after administration of anesthetic agent History of esophagogastroduodenoscopy (EGD) History of colonoscopy History of cystoscopy WITH STENTS History of cardiac cath [id number] STENTS [facility] Status post right knee replacement Hx of total knee arthroplasty RIGHT 2012 History of lumbar fusion H/O: hysterectomy MITA with BSO S/P cholecystectomy Family History Mother Diabetes Arthritis Myocardial infarction Renal failure Glaucoma Stroke Family/Other Coronary heart disease Cancer Hypertension Sister Colorectal cancer Glaucoma IBS (irritable bowel syndrome) Father Alzheimer disease Traumatic brain injury A-fib Hypertension Grandmother (Maternal) Myocardial infarction Grandfather (Maternal) Arthritis Grandmother (Paternal) Multiple sclerosis Other No family history of adverse response to anesthesia Denies family history of Ovarian cancer Prostate cancer Breast cancer Lung cancer Social History Smoking Status: Never smoker Second Hand Exposure: No; Do You Dip or Chew Tobacco: No; Hx Alcohol Use: No Hx Substance Use: No Preferred Language: Urdu Communication Ability: Effective Visual Impairment: Limited Hearing Ability: Normal Administrative Assistant Receptionist Required: No Beliefs That Will Affect Care: None marital status: Current Living Situation: Spouse Current Living Situation Comment: lives in 1 story house with current occupational status: other current occupation: self employed How many Children do You have: 1 Feels Safe at Home: Yes Childhood Exposure to Second-Hand Smoke: Yes Diet: regular caffeine: Yes Dental Care, Regularly: Yes Physical Activity Frequency: Does not Exercise Seatbelt Use: always Sunscreen Use: Yes Assistive Devices: Cane, Scooter/Electric Scooter and Walker Allergies Allergies Allergy/AdvReac Type Severity Reaction Status Date / Time lidocaine Allergy Severe ANAPHYLAXIS Verified 12/08/24 13:58 NSAIDS (Non-Steroidal Allergy Severe esophagitis Verified 12/08/24 13:58 Anti-Inflamma thimerosal Allergy Severe ANAPHYLACTI Verified 12/08/24 13:58 C cefazolin Allergy Intermediate HIVES Verified 12/08/24 13:58 Penicillins Allergy Intermediate HIVES Verified 12/08/24 13:58 adhesive AdvReac Mild TEARING OF Verified 12/08/24 13:58 SKIN, BLISTERS Flu Virus Vaccine Allergy Severe ANAPHYLACTI Uncoded 12/08/24 13:58 C Home Meds Home Medications Medication Instructions Recorded Confirmed latanoprost 0.005 % eye drops 1 drops ophthalmic (eye) UD 06/25/18 12/08/24 (Xalatan) lactobacillus combination no.9 4 4,000 mmu cells PO QAM 05/31/19 12/08/24 billion cell capsule (Adult 50 Plus Probiotic) melatonin 10 mg tablet 10 mg PO HS 08/29/20 12/08/24 multivitamin 1 tab PO QAM 08/29/20 12/08/24 loratadine 10 mg tablet (Claritin) 10 mg PO DAILY PRN allergies 09/28/23 12/08/24 Previous Rx's Medication Instructions Recorded vitamins A,C,N-wvoa-rbhmon 4,296 1 cap PO BID #60 caps 03/07/23 mcg-226 mg-90 mg capsule (PreserVision AREDS) meclizine 25 mg tablet 25 mg PO BID PRN dizziness or 10/23/23 vertigo #60 tabs atorvastatin 20 mg tablet 20 mg PO HS #90 tabs 06/11/24 mecobalamin (vitamin B12) 1,000 1,000 mcg PO DAILY #90 tabs 06/11/24 mcg chewable tablet duloxetine 60 mg capsule,delayed 60 mg PO QPM #90 caps 08/01/24 release (Cymbalta) omeprazole 20 mg capsule,delayed 20 mg PO BID #180 caps 08/01/24 release gabapentin 300 mg capsule 300 mg PO TID #90 caps 08/08/24 metoprolol succinate 100 mg 150 mg (1.5 x 100 mg) PO DAILY 10/28/24 tablet,extended release 24 hr #135 tabs escitalopram oxalate 10 mg tablet 10 mg PO DAILY #30 tabs 11/30/24 (Lexapro) clindamycin HCl 300 mg capsule 300 mg PO TID 7 days #21 caps 12/11/24 hydrocodone 5 mg-acetaminophen 325 1 tab PO Q4H PRN pain #14 tabs 12/11/24 mg tablet rivaroxaban 20 mg tablet (Xarelto) 20 mg PO QPM #90 tabs 12/13/24 Results & Data (ED) Vital Signs Vital Signs - 24 hr 12/08/24 15:38 Temperature 36.4 C L Temperature Source Temporal Artery Scan Pulse Rate 98 H Respiratory Rate 18 Respiratory Effort / Characteristics Non-Labored Spontaneous Respiratory Depth Normal Respiratory Pattern Regular Blood Pressure 190/113 H Blood Pressure Mean 138 Pulse Oximetry 92 Oxygen Delivery Method Room Air Sepsis Recent Fever Within 48 Hours No Sepsis New/Unexplained Change in Mental Status N/A Sepsis Action Taken by Nursing No Action Required Laboratory Data 12/10/24 06:57 12/09/24 06:22 Lab Results 12/08/24 Range/Units 15:51 WBC 8.07 (4.8-10.8) K/ul RBC 4.52 (4.20-5.40) M/uL Hgb 13.3 (12.0-16.0) g/dl Hct 40.9 (37.0-47.0) % MCV 90.5 (80.0-100.0) fL MCH 29.4 (25.0-34.0) pg MCHC 32.5 (32.0-36.0) g/dL RDW Std Deviation 48.2 H (36.4-46.3) fL RDW Coeff of [place] 14.6 H (11.5-14.5) % Plt Count 181 (130-400) K/uL MPV 10.4 (9.4-12.4) fL Immature Gran % (Auto) 0.5 % Neut % (Auto) 68.9 % Lymph % (Auto) 10.9 % [place] % (Auto) 9.8 % Eos % (Auto) 9.2 % Baso % (Auto) 0.7 % Neut # (Auto) 5.56 (1.40-6.50) K/uL Lymph # (Auto) 0.88 L (1.20-3.40) K/uL [place] # (Auto) 0.79 H (0.11-0.59) K/uL Eos # (Auto) 0.74 H (0.00-0.50) K/uL Baso # (Auto) 0.06 (0.00-0.20) K/uL Immature Gran # (Auto) 0.04 (0.01-0.20) K/uL Sodium 138 (136-145) mmol/L Potassium 4.4 (3.5-5.1) mmol/L Chloride 105 (98-107) mmol/L Carbon Dioxide 27 (21-32) mmol/L Anion Gap 6 (3-11) BUN 28 H (6-23) mg/dl Creatinine 1.00 (0.6-1.2) mg/dl Est Cr Clr Drug Dosing Not Reportable eGFR 59.49 BUN/Creatinine Ratio 28.0 H (10-20) Glucose 83 (70-99(Fasting)) mg/dl Calcium 9.5 (8.6-10.3) mg/dl Total Bilirubin 1.1 H (0.2-1.0) mg/dl AST 17 (13-39) U/L ALT 12 (7-52) U/L Alkaline Phosphatase 115 H (34-104) U/L Total Protein 6.4 (6.0-8.3) gm/dl Albumin 3.7 (3.4-5.0) gm/dl Globulin 2.7 (2.5-4.0) gm/dl Albumin/Globulin Ratio 1.4 (0.9-2) Administered Medications Discontinued Medications Acetaminophen (Acetaminophen 325 Mg Tab) 650 mg PO Q4H PRN PRN Reason: pain/fever Stop: 01/07/25 19:15 Last Admin: 12/11/24 08:17 Dose: 650 mg Documented By: Admin: 12/10/24 21:04 Dose: 650 mg Documented By: Admin: 12/09/24 01:38 Dose: 650 mg Documented By: LAKESHA Atorvastatin Calcium (Atorvastatin 20 Mg Tab) 20 mg PO HS REPLACED BY [facility] Stop: 01/07/25 20:59 Last Admin: 12/10/24 21:05 Dose: 20 mg Documented By: Admin: 12/09/24 20:23 Dose: 20 mg Documented By: Admin: 12/08/24 21:54 Dose: 20 mg Documented By: LAKESHA Bupivacaine HCl (Bupivacaine/Epinephrine 0.5% 1:200,000 1.8 Ml Carp) Confirm Administered Dose 10.8 ml .ROUTE .STK-MED ONE Stop: 12/10/24 13:29 Last Admin: 12/10/24 14:07 Dose: Not Given Documented By: OLESYA Chlorhexidine Gluconate (Chlorhexidine Gluconate 0.12% 480 Ml) Confirm Administered Dose 480 ml [facility]-MED ONE Stop: 12/10/24 13:08 Last Admin: 12/10/24 13:52 Dose: 60 ml Documented By: ABRAHAM Cyanocobalamin (Cyanocobalamin (B-12) 500 Mcg Tablet) 1,000 mcg PO DAILY REPLACED BY [facility] Stop: 01/08/25 08:59 Last Admin: 12/11/24 09:00 Dose: 1,000 mcg Documented By: Admin: 12/10/24 07:35 Dose: 1,000 mcg Documented By: Admin: 12/09/24 08:13 Dose: 1,000 mcg Documented By: BRITNI Duloxetine HCl (Duloxetine Hcl 60 Mg Cap) 60 mg PO QPM SARAH Stop: 01/07/25 20:59 Last Admin: 12/10/24 21:06 Dose: 60 mg Documented By: Admin: 12/09/24 20:23 Dose: 60 mg Documented By: Admin: 12/08/24 21:54 Dose: 60 mg Documented By: LAKESHA Escitalopram Oxalate (Escitalopram Oxalate 10 Mg Tab) 10 mg PO DAILY SARAH Stop: 01/08/25 08:59 Last Admin: 12/11/24 09:00 Dose: 10 mg Documented By: Admin: 12/10/24 07:35 Dose: 10 mg Documented By: Admin: 12/09/24 08:13 Dose: 10 mg Documented By: BRITNI Gabapentin (Gabapentin 300 Mg Cap) 300 mg PO TID SARAH Stop: 01/08/25 20:59 Last Admin: 12/11/24 08:58 Dose: 300 mg Documented By: Admin: 12/10/24 21:04 Dose: 300 mg Documented By: Admin: 12/10/24 16:02 Dose: Not Given Documented By: Admin: 12/10/24 07:35 Dose: 300 mg Documented By: Admin: 12/09/24 20:23 Dose: 300 mg Documented By: LAKESHA Clindamycin Phosphate (Cleocin/D5w) 900 mg in 50 mls @ 100 mls/hr IV NOW ONE Stop: 12/08/24 17:26 Last Infusion: 12/08/24 18:50 Dose: Infused Documented By: Admin: 12/08/24 18:05 Dose: 100 mls/hr Documented By: ORLANDO Clindamycin Phosphate (Cleocin/D5w) 900 mg in 50 mls @ 100 mls/hr IV Q8H SARAH Stop: 12/19/24 03:59 Last Infusion: 12/11/24 11:07 Dose: Infused Documented By: Admin: 12/11/24 10:34 Dose: 100 mls/hr Documented By: Infusion: 12/11/24 04:27 Dose: Infused Documented By: Admin: 12/11/24 03:55 Dose: 100 mls/hr Documented By: Infusion: 12/10/24 20:02 Dose: Infused Documented By: Admin: 12/10/24 19:26 Dose: 100 mls/hr Documented By: Infusion: 12/10/24 11:56 Dose: Infused Documented By: Admin: 12/10/24 11:09 Dose: 100 mls/hr Documented By: Infusion: 12/10/24 03:53 Dose: Infused Documented By: Admin: 12/10/24 03:06 Dose: 100 mls/hr Documented By: Infusion: 12/09/24 18:52 Dose: Infused Documented By: Admin: 12/09/24 18:13 Dose: 100 mls/hr Documented By: Infusion: 12/09/24 13:14 Dose: Infused Documented By: Admin: 12/09/24 11:38 Dose: 100 mls/hr Documented By: Infusion: 12/09/24 03:24 Dose: Infused Documented By: Admin: 12/09/24 01:56 Dose: 100 mls/hr Documented By: LAKESHA Magnesium Sulfate/Dextrose (Magnesium Sulfate / D5w) 1 gm in 100 mls @ 50 mls/hr IV ONE ONE Stop: 12/09/24 18:12 Last Infusion: 12/09/24 18:53 Dose: Infused Documented By: Admin: 12/09/24 16:48 Dose: 50 mls/hr Documented By: MECHE Lactated Ringer's (Lr) 1,000 mls @ 15 mls/hr IV .Q24H SARAH Stop: 12/11/24 13:14 Last Infusion: 12/10/24 13:30 Dose: Infused Documented By: Admin: 12/10/24 13:10 Dose: 15 mls/hr Documented By: KYRA Ioversol (Optiray 320 100ml) 94 ml IV ONCE ONE Stop: 12/08/24 17:22 Last Admin: 12/08/24 17:21 Dose: 94 ml Documented By: PLLevy Ketorolac Tromethamine (Ketorolac Tromethamine 15 Mg/Ml Vial) 15 mg IV Q6H PRN PRN Reason: Pain Stop: 12/14/24 19:07 Last Admin: 12/11/24 08:03 Dose: 15 mg Documented By: Admin: 12/10/24 23:28 Dose: 15 mg Documented By: Admin: 12/10/24 16:08 Dose: 15 mg Documented By: Admin: 12/10/24 11:09 Dose: 15 mg Documented By: Admin: 12/09/24 19:32 Dose: 15 mg Documented By: LAKESHA Lactobacillus Acidophilus (Advanced Probiotic 625 Mg Capsule) 1,250 mg PO QAM REPLACED BY [facility] Stop: 01/08/25 08:59 Last Admin: 12/11/24 08:59 Dose: 1,250 mg Documented By: Admin: 12/10/24 07:35 Dose: 1,250 mg Documented By: Admin: 12/09/24 08:13 Dose: 1,250 mg Documented By: BRITNI Latanoprost (Latanoprost 0.005% Op Soln 2.5 Ml Btl) 1 drops OP PM REPLACED BY [facility] Stop: 01/07/25 20:59 Last Admin: 12/10/24 21:06 Dose: 1 drops Documented By: Admin: 12/09/24 20:24 Dose: 1 drops Documented By: Admin: 12/08/24 21:54 Dose: 1 drops Documented By: LAKESHA Melatonin (Melatonin 3 Mg Tab) 9 mg PO [facility] Stop: 01/07/25 20:59 Last Admin: 12/10/24 21:04 Dose: 9 mg Documented By: Admin: 12/09/24 20:23 Dose: 9 mg Documented By: Admin: 12/08/24 21:54 Dose: 9 mg Documented By: LAKESHA Metoprolol Succinate (Metoprolol Succ 50mg Ext Rel Tab) 100 mg PO BID REPLACED BY [facility] Stop: 01/08/25 08:59 Last Admin: 12/11/24 08:59 Dose: 100 mg Documented By: Admin: 12/10/24 21:05 Dose: 100 mg Documented By: Admin: 12/10/24 07:35 Dose: 100 mg Documented By: Admin: 12/09/24 20:23 Dose: 100 mg Documented By: Admin: 12/09/24 08:13 Dose: 100 mg Documented By: BRITNI Miscellaneous (Surgicel Absorb Hemostat 2in X 14in) 1 each TOP ONCE ONE Stop: 12/10/24 14:09 Last Admin: 12/10/24 14:08 Dose: 1 each Documented By: ABRAHAM Multivitamins/Minerals (Cerovite Adv Formula Tab) 1 tab PO BID REPLACED BY [facility] Stop: 01/07/25 20:59 Last Admin: 12/11/24 08:59 Dose: 1 tab Documented By: Admin: 12/10/24 21:04 Dose: 1 tab Documented By: Admin: 12/10/24 07:35 Dose: 1 tab Documented By: Admin: 12/09/24 20:23 Dose: 1 tab Documented By: Admin: 12/09/24 08:13 Dose: 1 tab Documented By: Admin: 12/08/24 21:54 Dose: 1 tab Documented By: LAKESHA Ondansetron HCl (Ondansetron Inj 2 Mg/Ml 2 Ml Vial) 4 mg IV Q6H PRN PRN Reason: Nausea Stop: 01/07/25 19:15 Last Admin: 12/08/24 21:06 Dose: 4 mg Documented By: LAKESHA Oxycodone HCl (Oxycodone Hcl Ir 5 Mg Tab (Immediate Release)) 5 mg PO NOW STA Stop: 12/08/24 19:10 Last Admin: 12/08/24 19:15 Dose: 5 mg Documented By: QGV Oxycodone HCl (Oxycodone Hcl Ir 5 Mg Tab (Immediate Release)) 5 mg PO Q6H PRN PRN Reason: Severe Pain (Scale 7, 8, 9,10) Stop: 12/22/24 21:15 Last Admin: 12/10/24 19:26 Dose: 5 mg Documented By: Admin: 12/09/24 16:47 Dose: 5 mg Documented By: Admin: 12/09/24 08:13 Dose: 5 mg Documented By: Admin: 12/08/24 23:38 Dose: 5 mg Documented By: LAKESHA Pantoprazole Sodium (Pantoprazole 40 Mg Tab) 40 mg PO BID SARAH Stop: 01/07/25 20:59 Last Admin: 12/11/24 09:00 Dose: 40 mg Documented By: Admin: 12/10/24 21:05 Dose: 40 mg Documented By: Admin: 12/10/24 07:35 Dose: 40 mg Documented By: Admin: 12/09/24 20:23 Dose: 40 mg Documented By: Admin: 12/09/24 08:13 Dose: 40 mg Documented By: Admin: 12/08/24 21:54 Dose: 40 mg Documented By: [facility] Discharge Plan Visit Data Chief Complaint: Infection Stated Complaint: UPPER TOOTH INFECTION/RT SIDE, EDEMA ED Provider: Raf Stone ED Midlevel Provider: Stacie Fuentes Discharge Problem: Peritonsillar abscess, Facial cellulitis, Abscess, dental Patient Disposition: Admitted As Inpatient Condition: Good Discharge Instructions Interventions: ED Discharge Assessment Last Done: 12/08/24 20:35
[2024-12-08] MEDS: OPTIRAY 320 100ml IV ONE (17:21)
[2024-12-08] MEDS: CLINDAMYCIN/D5W 900 MG/50 ML BAG IV ONE (18:05)
--- NOTE | 2024-12-08 18:36 | CT Scan Report ---
Technique: Axial computed tomography images were obtained of the neck after the administration of intravenous contrast Findings: There is a small rim-enhancing fluid collection along the anterior aspect of the right axillary bone, measuring 12 x 4 mm. This is concerning for an abscess. There is a 9 mm pocket of fluid in the left palatine tonsil, concerning for an abscess as well The salivary glands appear unremarkable. There are small subcentimeter submandibular lymph nodes. No overt adenopathy is seen. No foreign body is evident There is no sign of epiglottitis or prevertebral inflammation. No definite abnormality of the larynx is noted. The thyroid gland appears normal. The jugular veins appear patent. No definite significant stenosis is seen of the carotid arteries. The visualized paranasal sinuses and mastoid air cells appear clear. There is degenerative disc disease and osteoarthritis of the cervical spine. There is mild linear atelectasis in the right lung apex. There is a right chest wall pacemaker device Impression: 1. Suspected 9 mm abscess in the left palatine tonsil 2. Apparent 12 x 4 mm abscess along the anterior aspect of the right maxillary bone Electronically signed by Oscar Jimenez 12-08-2024 6:36 PM
[2024-12-08] MEDS: oxyCODONE HCL IR 5 MG TAB (IMMEDIATE RELEASE) PO STA (19:15)
--- NOTE | 2024-12-08 19:33 | History & Physical Report ---
Date of Service December 08, 2024 Assessment & Plan (1) Peritonsillar abscess: Plan: Assessment 1. Oral/dental abscesses. 9 mm left palatine tonsil abscess and a 12 x 4 mm right maxillary bone abscess. IV clindamycin. Clear liquids till midnight. N.p.o. after midnight. Maxillofacial surgery consulted by the ER provider tentative plan is to go to the OR in the morning for tooth extractions and I&D. 2. History of atrial fibrillation. On chronic Xarelto therapy. Last dose was last evening. Will hold tonight's dose for surgery tomorrow. This should be restarted ARMANDO postoperatively when okay with maxillofacial surgery. 3. Hypertension. Stable. Continue home medications. 4. Dyslipidemia. Continue home medications. 5. History of GERD and Schatzki's ring. Continue PPI. 6. History of Crohn's disease with no obvious acute flare. 7. History of anxiety/depression. 8. History of sick sinus syndrome status post pacemaker placement. Follows with electrophysiology. Plan: As described above. Please refer to orders for further planning. History of Present Illness Chief Complaint: Dental caries with mild pain and swelling and erythema right sided. Primary Care Provider: Gema Amezquita MD This 74-year-old female who has a history of dental caries and scheduled for to oth extraction with the beginning of December. Over the last 24 to 36 hours she has had increased pain and swelling and erythema over the right maxillary region and came to the ER for further evaluation and treatment. In the emergency department CT of the soft tissues of the neck were obtained which identified a 9 mm abscess in the left palatine tonsil as well as a 12 x 4 mm abscess along the anterior aspect of the right maxillary bone. Maxillofacial surgery was consulted via the ER. The patient was given clindamycin IV 900 mg. Tentative plan is to go to the operating room tomorrow for tooth extraction and I&D. We are called admit the patient for further evaluation and treatment. Allergies Allergy/AdvReac Type Severity Reaction Status Date / Time lidocaine Allergy Severe ANAPHYLAXIS Verified 12/08/24 13:58 NSAIDS (Non-Steroidal Allergy Severe esophagitis Verified 12/08/24 13:58 Anti-Inflamma thimerosal Allergy Severe ANAPHYLACTI Verified 12/08/24 13:58 C cefazolin Allergy Intermediate HIVES Verified 12/08/24 13:58 Penicillins Allergy Intermediate HIVES Verified 12/08/24 13:58 adhesive AdvReac Mild TEARING OF Verified 12/08/24 13:58 SKIN, BLISTERS Flu Virus Vaccine Allergy Severe ANAPHYLACTI Uncoded 12/08/24 13:58 C Home Medications Medication Instructions Recorded Confirmed Type latanoprost 0.005 % eye drops 1 drops ophthalmic (eye) UD 06/25/18 12/08/24 History (Xalatan) lactobacillus combination no.9 4 4,000 mmu cells PO QAM 05/31/19 12/08/24 History billion cell capsule (Adult 50 Plus Probiotic) melatonin 10 mg tablet 10 mg PO HS 08/29/20 12/08/24 History multivitamin 1 tab PO QAM 08/29/20 12/08/24 History vitamins A,C,O-ehvz-jtjngc 4,296 1 cap PO BID #60 caps 03/07/23 12/08/24 Rx mcg-226 mg-90 mg capsule (PreserVision AREDS) loratadine 10 mg tablet (Claritin) 10 mg PO DAILY PRN allergies 09/28/23 12/08/24 History rivaroxaban 20 mg tablet (Xarelto) 20 mg PO QPM #90 tabs 10/20/23 12/08/24 Rx meclizine 25 mg tablet 25 mg PO BID PRN dizziness or 10/23/23 12/08/24 Rx vertigo #60 tabs atorvastatin 20 mg tablet 20 mg PO HS #90 tabs 06/11/24 12/08/24 Rx mecobalamin (vitamin B12) 1,000 1,000 mcg PO DAILY #90 tabs 06/11/24 12/08/24 Rx mcg chewable tablet duloxetine 60 mg capsule,delayed 60 mg PO QPM #90 caps 08/01/24 12/08/24 Rx release (Cymbalta) omeprazole 20 mg capsule,delayed 20 mg PO BID #180 caps 08/01/24 12/08/24 Rx release gabapentin 300 mg capsule 300 mg PO TID #90 caps 08/08/24 12/08/24 Rx metoprolol succinate 100 mg 150 mg (1.5 x 100 mg) PO DAILY 10/28/24 12/08/24 Rx tablet,extended release 24 hr #135 tabs escitalopram oxalate 10 mg tablet 10 mg PO DAILY #30 tabs 11/30/24 12/08/24 Rx (Lexapro) Past Med/Surg History Problem List (Updated 12/08/24 @ 19:30 by Rodolfo Wright, PhD, DO) Peritonsillar abscess Calcium nephrolithiasis Anticoagulant long-term use Hyperglycemia Adenomatous polyp of colon (Acute) Glaucoma (Acute) Long QT syndrome (Acute) Hyperlipidemia (Acute) Vitamin D deficiency disease Vitamin B12 deficiency Atrial fibrillation (Acute) Chronic reflux esophagitis (Acute) Peripheral neuropathy (Acute) Schatzki's ring (Acute) Urge incontinence of urine (Acute) Health care maintenance Crohn's disease (Acute) Gait abnormality (Chronic) Obesity (Chronic) Lumbar post-laminectomy syndrome (Chronic) Lumbago (Chronic) Depression (Chronic) Anxiety (Chronic) Pacemaker (Chronic) SECONDARY TO SINUS NODE DYSFUNCTION---medtronic, implanted 06/19/12 GERD (gastroesophageal reflux disease) (Chronic) Well controlled and stable Medical History (Updated 12/08/24 @ 19:30 by Rodolfo Wright, PhD, DO) Hematuria intermittent r/t chronic kidney stones Anxiety Depression Lumbar post-laminectomy syndrome Schatzki's ring Peripheral neuropathy Chronic reflux esophagitis Hyperlipidemia Glaucoma History of colon polyps History of COVID-19 (08/2022) no hosp; resolved Crohn's disease pt states this was an inaccurate diagnosis Pacemaker SECONDARY TO SINUS NODE DYSFUNCTION---medtronic, implanted 06/19/12 Concussion denies Balance disorder Dizziness intermittent Pacemaker lead malfunction lead and battery change 04/2023 [facility] Myofascial pain syndrome Ureterolithiasis hx History of anesthesia reaction BP dropped with hysterectomy Dry heaves occasional Nausea intermittent Kidney stones No current issues - chronic right sided kidney stone On anticoagulant therapy XARELTO DAILY Migraine HX- NO ISSUES X 20 YEARS Left knee DJD Atrial tachycardia Follows with cardio- on metoprolol Atrial fibrillation On Xarelto - follows w/ Dr Mackenzie Surgical History History of total left knee replacement Status post total left knee replacement November 21, 2020/Dr. Esparza History of esophageal dilatation Nausea and vomiting after administration of anesthetic agent History of esophagogastroduodenoscopy (EGD) History of colonoscopy History of cystoscopy WITH STENTS History of cardiac cath [id number] STENTS [facility] Status post right knee replacement Hx of total knee arthroplasty RIGHT 2012 History of lumbar fusion H/O: hysterectomy MITA with BSO S/P cholecystectomy Family History Mother Diabetes Arthritis Myocardial infarction Renal failure Glaucoma Stroke Family/Other Coronary heart disease Cancer Hypertension Sister Colorectal cancer Glaucoma IBS (irritable bowel syndrome) Father Alzheimer disease Traumatic brain injury A-fib Hypertension Grandmother (Maternal) Myocardial infarction Grandfather (Maternal) Arthritis Grandmother (Paternal) Multiple sclerosis Other No family history of adverse response to anesthesia Denies family history of Ovarian cancer Prostate cancer Breast cancer Lung cancer Social History Smoking Status: Never smoker Second Hand Exposure: No; Do You Dip or Chew Tobacco: No; Hx Alcohol Use: Yes Alcohol type: beer Hx Substance Use: No Preferred Language: Yakut Communication Ability: Effective Visual Impairment: Limited Hearing Ability: Normal Braider Tender Required: No Beliefs That Will Affect Care: None marital status: Current Living Situation: Spouse current occupational status: other current occupation: self employed How many Children do You have: 1 Feels Safe at Home: Yes Childhood Exposure to Second-Hand Smoke: Yes Diet: regular caffeine: Yes Dental Care, Regularly: Yes Physical Activity Frequency: Does not Exercise Seatbelt Use: always Sunscreen Use: Yes Assistive Devices: Cane, Denture - Upper and Glasses Review of Systems Review of Systems: A 10 point review of system was obtained and unless otherwise stated here or in history of present illness are negative and noncontributory to chief complaint. Physical Exam Physical Exam: In General: In general 74-year-old female is alert and oriented x 3 at the time of my exam. 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 She interacts appropriately and pleasantly. HEENT: Swelling and erythema right maxillary region. Warm to the touch. She is protecting her airway without difficulty and swallowing her secretions fine. Pupils are equal round and reactive to light bilaterally. No scleral icterus. NECK: Supple no rigidity no lymphadenopathy no thyromegaly no carotid bruits no JVD no masses. HEART: Regular rate and rhythm I do not appreciate any ectopy or rub. No m urmur. LUNGS: Clear to auscultation bilaterally and anteriorly with no evidence of adventitious sounds/wheezes rales or rhonchi. ABDOMEN: Soft nontender, no rebound, no peritoneal signs, positive bowel sounds. EXTREMITIES: Intact, no peripheral cyanosis, clubbing or edema. NEUROLOGICAL: Cranial nerves grossly intact with no focal deficits. Results & Data Results & Data Vital Signs (Past 12 Hours) Vital Signs Temp Pulse Pulse Resp BP BP Pulse Ox 12/08/24 18:48 98 H 16 165/100 H 100 12/08/24 15:38 36.4 C L 98 H 18 190/113 H 92 O2 Del Method 12/08/24 18:48 Room Air 12/08/24 15:38 Room Air Code Status & VTE Plan VTE Prophylaxis Plan VTE Prophylaxis will be ordered: Yes PG Care Time/CCT Total # of Minutes Spent Total Time Spent with Patient: Total time spent is greater than 50% in coordination of care (as documented) at patient's floor/unit and/or counseling patient: Coding Level of Care Code 04096 INT INP/OBS CARE 2/55MIN Diagnoses Peritonsillar abscess J36
--- NOTE | 2024-12-08 20:18 | Oral/Maxillofacial Consult ---
Date of Consultation December 08, 2024 Assessment & Plan (1) Peritonsillar abscess: (2) Anticoagulant long-term use: (3) Facial swelling: (4) Facial cellulitis: (5) Abscess of pulp of tooth: History of Present Illness History of Present Illness History of Present Illness Chief Complaint: Dental caries with mild pain and swelling and erythema right sided. Primary Care Provider: Gema Amezquita MD This 74-year-old female who has a history of dental caries and scheduled for tooth extraction with the beginning of December. Over the last 24 to 36 hours she has had increased pain and swelling and erythema over the right maxillary region and came to the ER for further evaluation and treatment. In the emergency department CT of the soft tissues of the neck were obtained which identified a 9 mm abscess in the left palatine tonsil as well as a 12 x 4 mm abscess along the anterior aspect of the right maxillary bone. Dr Bernard Maxillofacial surgery was consulted via the ER. The patient was given clindamycin IV 900 mg. I will be seeing Mrs. Garrison tomorrow before 12 noon with a tentative plan is to go to the operating room late afternoon or Friday AM for tooth extraction and I&D. Dr Joana SANCHEZ was called for further evaluation and treatment of acute facial infection for I&D She will be admitted to hospital medicine service On chronic Xarelto therapy. Assessment 1. Oral/dental abscesses. 9 mm left palatine tonsil abscess and a 12 x 4 mm right maxillary bone abscess. IV clindamycin. Clear liquids till midnight. N.p.o. after midnight. Maxillofacial surgery consulted by the ER provider tentative plan is to go to the OR in the morning for tooth extractions and I&D. 2. History of atrial fibrillation. On chronic Xarelto therapy. Last dose was last evening. Will hold tonight's dose for surgery tomorrow. This should be restarted ARMANDO postoperatively when okay with maxillofacial surgery. 3. Hypertension. Stable. Continue home medications. 4. Dyslipidemia. Continue home medications. 5. History of GERD and Schatzki's ring. Continue PPI. 6. History of Crohn's disease with no obvious acute flare. 7. History of anxiety/depression. 8. History of sick sinus syndrome status post pacemaker placement. Follows with electrophysiology. Plan: Dr Bernard OMS was called for further evaluation and treatment of acute facial infection for I&D She will be admitted to hospital medicine service On chronic Xarelto therapy I was consulted via the ER. The patient was given clindamycin IV 900 mg. I will be seeing Mrs. Garrison tomorrow before 12 noon with a tentative plan is to go to the operating room late afternoon or Friday AM for tooth extraction and I&D. Oral Maxillofacial Surgery Exam Present Complaint: I have pain/swelling/drainage from my infected upper teeth right and anterior teeth Symptoms have been ongoing for a while. Now acute swelling infraorbital and mucobuccal fold right side Oral Exam: Finding--Advance dental infection associated with the grossly infected and periodontally involved teeth, tender gingival tissue with deep pocket formation.Teeth are in an abnormal position and removal is clinical indicated. There is purulent drainage and gross infection Imaging: I will contact her dentist Dr Penny for dental x rays otherwise I will use the CT scan CT scan for right facial infection Findings: There is a small rim-enhancing fluid collection along the anterior aspect of the right axillary bone, measuring 12 x 4 mm. This is concerning for an abscess. There is a 9 mm pocket of fluid in the left palatine tonsil, concerning for an abscess as well The salivary glands appear unremarkable. There are small subcentimeter submandibular lymph nodes. No overt adenopathy is seen. No foreign body is evident There is no sign of epiglottitis or prevertebral inflammation. No definite abnormality of the larynx is noted. The thyroid gland appears normal. The jugular veins appear patent. No definite significant stenosis is seen of the carotid arteries. The visualized paranasal sinuses and mastoid air cells appear clear. There is degenerative disc disease and osteoarthritis of the cervical spine. There is mild linear atelectasis in the right lung apex. There is a right chest wall pacemaker device Impression: 1. Suspected 9 mm abscess in the left palatine tonsil 2. Apparent 12 x 4 mm abscess along the anterior aspect of the right maxillary bone Soft tissue: The floor of the mouth, tongue, hard/soft palate, posterior pharyngeal area all with in normal limits, no pathology or abnormal findings noted. Upper soft tissue grossly swollen, improvement upper selling upper right cheek area Oral Care: Overall oral care is poor Occlusion: Class I missing teeth TMJ exam: No pop, clicking, pain, good ROM, No history of TMJ injury or dysfunction Periodontal exam: Avance gingival tissue infection with acute evidence of periodontal pathology. Head/Neck exam: Neck is supple, FROM, Able to extend and flex neck w/o difficulty, no masses, no abnormalities, no airway issues, no evidence of sleep apnea. Noted the swelling from the present infection upper right side Treatment Plan: I reviewed the overall treatment plan with her dentist Dr Penny--extraction of 1,2,5,7,8,10,24,25,29 I&D upper left infraorbital area and mucobuccal fold Hold Xarelto tonight Set up surgery Friday Diet now-NPO midnight Set up with general anesthesia in hospital due to complexity of the procedure I reviewed the treatment plan and consent with the patient Understanding was expressed. Time was given for questions regarding the surgery, risks and post op care. Discussed alternative to treatment--procedure as planned, Do not do surgery The following teeth are decayed and fractured and removal is indicated ARMANDO: 1,2,3,5,7,8,10 24,25 and [address] Penny and Shalini Risks discussed: Bleeding,Pain,swelling,infection, dry socket, delayed healing, nerve injury to face,lips,tongue,chin area which could be permanent (rare). TMJ, jaw stiffness, change in bite (rare), ear pain (referred). Sinus problems like fistula or infection. Need to leave a small root fragment in place to avoid injury to nerve or sinus. Relationship of teeth to nerve/sinus and risk of jaw fracture. Home care reviewed: follow up care with Dr Bernard and her dentist diet=[id number] dental. Discussed activity level, driving/work while on Rx pain Meds. need for further extraction Partial vs Full upper Surgery to be set up Friday as per OR schedule Allergies Allergy/AdvReac Type Severity Reaction Status Date / Time lidocaine Allergy Severe ANAPHYLAXIS Verified 12/08/24 13:58 NSAIDS (Non-Steroidal Allergy Severe esophagitis Verified 12/08/24 13:58 Anti-Inflamma thimerosal Allergy Severe ANAPHYLACTI Verified 12/08/24 13:58 C cefazolin Allergy Intermediate HIVES Verified 12/08/24 13:58 Penicillins Allergy Intermediate HIVES Verified 12/08/24 13:58 adhesive AdvReac Mild TEARING OF Verified 12/08/24 13:58 SKIN, BLISTERS Flu Virus Vaccine Allergy Severe ANAPHYLACTI Uncoded 12/08/24 13:58 C Home Medications Medication Instructions Recorded Confirmed Type latanoprost 0.005 % eye drops 1 drops ophthalmic (eye) UD 06/25/18 12/08/24 History (Xalatan) lactobacillus combination no.9 4 4,000 mmu cells PO QAM 05/31/19 12/08/24 History billion cell capsule (Adult 50 Plus Probiotic) melatonin 10 mg tablet 10 mg PO HS 08/29/20 12/08/24 History multivitamin 1 tab PO QAM 08/29/20 12/08/24 History vitamins A,C,V-thfv-lxczma 4,296 1 cap PO BID #60 caps 03/07/23 12/08/24 Rx mcg-226 mg-90 mg capsule (PreserVision AREDS) loratadine 10 mg tablet (Claritin) 10 mg PO DAILY PRN allergies 09/28/23 12/08/24 History rivaroxaban 20 mg tablet (Xarelto) 20 mg PO QPM #90 tabs 10/20/23 12/08/24 Rx meclizine 25 mg tablet 25 mg PO BID PRN dizziness or 10/23/23 12/08/24 Rx vertigo #60 tabs atorvastatin 20 mg tablet 20 mg PO HS #90 tabs 06/11/24 12/08/24 Rx mecobalamin (vitamin B12) 1,000 1,000 mcg PO DAILY #90 tabs 06/11/24 12/08/24 Rx mcg chewable tablet duloxetine 60 mg capsule,delayed 60 mg PO QPM #90 caps 08/01/24 12/08/24 Rx release (Cymbalta) omeprazole 20 mg capsule,delayed 20 mg PO BID #180 caps 08/01/24 12/08/24 Rx release gabapentin 300 mg capsule 300 mg PO TID #90 caps 08/08/24 12/08/24 Rx metoprolol succinate 100 mg 150 mg (1.5 x 100 mg) PO DAILY 10/28/24 12/08/24 Rx tablet,extended release 24 hr #135 tabs escitalopram oxalate 10 mg tablet 10 mg PO DAILY #30 tabs 11/30/24 12/08/24 Rx (Lexapro) Patient History Medical History Hematuria intermittent r/t chronic kidney stones Anxiety Depression Lumbar post-laminectomy syndrome Schatzki's ring Peripheral neuropathy Chronic reflux esophagitis Hyperlipidemia Glaucoma History of colon polyps History of COVID-19 (08/2022) no hosp; resolved Crohn's disease pt states this was an inaccurate diagnosis Pacemaker SECONDARY TO SINUS NODE DYSFUNCTION---medtronic, implanted 06/19/12 Concussion denies Balance disorder Dizziness intermittent Pacemaker lead malfunction lead and battery change 04/2023 [facility] Myofascial pain syndrome Ureterolithiasis hx History of anesthesia reaction BP dropped with hysterectomy Dry heaves occasional Nausea intermittent Kidney stones No current issues - chronic right sided kidney stone On anticoagulant therapy XARELTO DAILY Migraine HX- NO ISSUES X 20 YEARS Left knee DJD Atrial tachycardia Follows with cardio- on metoprolol Atrial fibrillation On Xarelto - follows w/ Dr Mackenzie Surgical History History of total left knee replacement Status post total left knee replacement November 21, 2020/Dr. Esparza History of esophageal dilatation Nausea and vomiting after administration of anesthetic agent History of esophagogastroduodenoscopy (EGD) History of colonoscopy History of cystoscopy WITH STENTS History of cardiac cath [id number] STENTS [facility] [place] Status post right knee replacement Hx of total knee arthroplasty RIGHT 2012 History of lumbar fusion H/O: hysterectomy MITA with BSO S/P cholecystectomy Family History Mother Diabetes Arthritis Myocardial infarction Renal failure Glaucoma Stroke Family/Other Coronary heart disease Cancer Hypertension Sister Colorectal cancer Glaucoma IBS (irritable bowel syndrome) Father Alzheimer disease Traumatic brain injury A-fib Hypertension Grandmother (Maternal) Myocardial infarction Grandfather (Maternal) Arthritis Grandmother (Paternal) Multiple sclerosis Other No family history of adverse response to anesthesia Denies family history of Ovarian cancer Prostate cancer Breast cancer Lung cancer Social History Smoking Status: Never smoker Second Hand Exposure: No; Do You Dip or Chew Tobacco: No; Hx Alcohol Use: No Hx Substance Use: No Preferred Language: Citizen [place] Communication Ability: Effective Visual Impairment: Limited Hearing Ability: Normal Global Creative Chairman Required: No Beliefs That Will Affect Care: None marital status: Current Living Situation: Spouse Current Living Situation Comment: lives in 1 story house with current occupational status: other current occupation: self employed How many Children do You have: 1 Feels Safe at Home: Yes Childhood Exposure to Second-Hand Smoke: Yes Diet: regular caffeine: Yes Dental Care, Regularly: Yes Physical Activity Frequency: Does not Exercise Seatbelt Use: always Sunscreen Use: Yes Assistive Devices: Cane, Scooter/Electric Scooter and Walker Review of Systems Review of Systems: PHYSICAL EXAM: VITALS: Vitals are noted on the nurse's note and reviewed by myself. Vital signs stable. GENERAL: 74-year-old female, in no acute distress, nondiaphoretic, well- developed well-nourished. SKIN: The skin was without rashes, erythema, edema, or bruising. HEAD: Normocephalic atraumatic. EARS: External auditory canals clear, tympanic membranes pearly harvey without erythema or effusion bilaterally. EYES: Pupils equal round and reactive to light and accommodation. Conjunctivae without injection, sclerae without icterus. Extraocular movements intact. NOSE: Patent, turbinates without inflammation or discharge. No sinus tenderness. MOUTH: Mucous membranes moist. Tonsils are not enlarged. Pharynx without erythema or exudate. Uvula midline. Airway patent. Tongue does not deviate. NECK: Supple without nuchal rigidity. No lymphadenopathy. No thyromegaly. Cervical spine is nontender. No JVD. HEART: Regular rate and rhythm without murmurs gallops or rubs. LUNGS: Clear to auscultation bilaterally without wheezes, rales or rhonchi. No retractions or accessory muscle use. ABDOMEN: Positive bowel sounds x 4. Soft, nontender, without masses or organomegaly. Donald sign negative. No guarding or rebound tenderness. MUSCULOSKELETAL: No muscle atrophy, erythema, or edema noted. Full range of motion without joint tenderness in all extremities. No tenderness to palpation. Normal gait. Strength 5/5 throughout. NEURO: Patient was alert and oriented to person place and time. No focal neurological deficits. Results & Data Vital Signs (Past 12 Hours) Vital Signs Temp Pulse Pulse Resp BP BP Pulse Ox 12/08/24 18:48 98 H 16 165/100 H 100 12/08/24 15:38 36.4 C L 98 H 18 190/113 H 92 O2 Del Method 12/08/24 18:48 Room Air 12/08/24 15:38 Room Air PG Care Time/CCT Total # of Minutes Spent Total Time Spent with Patient: Total time spent is greater than 50% in coordination of care (as documented) at patient's floor/unit and/or counseling patient: Coding Level of Care Code 10826 INT INP/OBS CARE 1/40MIN Diagnoses Peritonsillar abscess J36 Anticoagulant long-term use Z79.01 Facial swelling R22.0 Facial cellulitis L03.211 Abscess of pulp of tooth K04.01
[2024-12-08] MEDS: ONDANSETRON INJ 2 MG/ML 2 ML VIAL IV PRN (21:06)
[2024-12-08] MEDS: CEROVITE ADV FORMULA TAB PO SCH (21:54)
[2024-12-08] MEDS: ATORVASTATIN 20 MG TAB PO SCH (21:54)
[2024-12-08] MEDS: MELATONIN 3 MG TAB PO SCH (21:54)
[2024-12-08] MEDS: DULoxetine HCL 60 MG CAP PO SCH (21:54)
[2024-12-08] MEDS: LATANOPROST 0.005% OP SOLN 2.5 ML BTL OP SCH (21:54)
[2024-12-08] MEDS: PANTOprazole 40 MG TAB PO SCH (21:54)
[2024-12-08] MEDS: oxyCODONE HCL IR 5 MG TAB (IMMEDIATE RELEASE) PO PRN (23:38)
[2024-12-09] MEDS: ACETAMINOPHEN 325 MG TAB PO PRN (01:38)
[2024-12-09] MEDS: CLINDAMYCIN/D5W 900 MG/50 ML BAG IV SCH (01:56)
[2024-12-09 07:08] LABS: Basophils # (auto) 0.05 K/uL (0.00-0.20); Basophils % (auto) 0.9 %; Eosinophils % (auto) 9.1 %; Hematocrit (blood only) 36.5 % (37.0-47.0); Hemoglobin 11.8 g/dl (12.0-16.0); Immature Granulocytes # (auto) 0.03 K/uL (0.01-0.20); Immature Granulocytes % (auto) 0.5 %; Lymphocytes # (auto) 1.26 K/uL (1.20-3.40); Mean Corpuscular Hemoglobin 29.7 pg (25.0-34.0); Mean Corpuscular Hgb Conc 32.3 g/dL (32.0-36.0); Mean Corpuscular Volume 91.9 fL (80.0-100.0); Mean Platelet Volume 10.3 fL (9.4-12.4); Monocytes # (auto) 0.57 K/uL (0.11-0.59); Monocytes % (auto) 10.4 %; Neutrophils # (auto) 3.08 K/uL (1.40-6.50); Neutrophils % (auto) 56.1 %; Platelet Count 172 K/uL (130-400); RDW Coefficient of Variation 14.6 % (11.5-14.5); RDW Standard Deviation 49.3 fL (36.4-46.3); Red Blood Count 3.97 M/uL (4.20-5.40); White Blood Count 5.49 K/ul (4.8-10.8)
[2024-12-09 07:23] LABS: Albumin Globulin Ratio 1.2 (0.9-2); Albumin Level 3.2 gm/dl (3.4-5.0); Bilirubin,Total 1.4 mg/dl (0.2-1.0); Chol HDL Ratio 4.3 (0-5); Creatinine Clr Calc Pharmacy 52.9 ml/min; Globulin 2.7 gm/dl (2.5-4.0); Magnesium 1.5 mg/dl (1.7-2.4); Potassium 3.9 mmol/L (3.5-5.1); Total Protein 5.9 gm/dl (6.0-8.3)
[2024-12-09 07:38] LABS: Thyroid Stimulating Hormone 4.434 uIu/ml (0.300-4.500)
[2024-12-09] MEDS: ADVANCED PROBIOTIC 625 MG CAPSULE PO SCH (08:13)
[2024-12-09] MEDS: METOPROLOL SUCC 50MG EXT REL TAB PO SCH (08:13)
[2024-12-09] MEDS: CYANOCOBALAMIN (B-12) 500 MCG TABLET PO SCH (08:13)
[2024-12-09] MEDS: ESCITALOPRAM OXALATE 10 MG TAB PO SCH (08:13)
[2024-12-09] MEDS ORDERED: METOPROLOL SUCC 50MG EXT REL TAB PO SCH (09:00)
--- NOTE | 2024-12-09 15:36 | Hospitalist Progress Note ---
Date of Service December 09, 2024 Assessment & Plan (1) Peritonsillar abscess: (2) Atrial fibrillation: (3) Hypertension: (4) Dyslipidemia: (5) Anxiety: (6) GERD (gastroesophageal reflux disease): (7) Vitamin B12 deficiency: (8) Hypomagnesemia: Plan Shalini is a 74-year-old pleasant female with past medical history of atrial fibrillation, hypertension, dyslipidemia, depression, anxiety, insomnia, chronic low back pain, GERD, vitamin B12 deficiency. She presented on 12/08/2024 with acute facial infection, admitted for IV antibiotics and surgical intervention with oral and maxillofacial surgeon. CT soft tissue neck revealed suspected 9 mm abscess in the left palatine tonsil and apparent 12 x 4 mm abscess along the anterior aspect of the right maxillary bone. #Dental abscesses Continue Clindamycin IV Q8H Clear liquid diet for now, NPO at midnight 12/10 Teeth extraction and I&D scheduled with Dr Bernard 12/10 #Atrial fibrillation/hypertension/dyslipidemia Typically takes metoprolol 150 mg daily at home. Metoprolol increased to 100 mg BID while inpatient due to hypertension on arrival, likely secondary to acute pain/infection Xarelto held with upcoming surgery. Resume postop when approved by maxillofacial surgery Continue atorvastatin 20 mg Mild hypomagnesemia at 1.5, repleted with 1 g mag IV. Monitor in AM #Anxiety/depression/insomnia/chronic lower back pain Continue Lexapro 10 mg daily, Cymbalta 60 mg QPM, gabapentin 300 mg TID, melatonin 9 mg HS #GERD/Schatzki's ring Continue pantoprazole 40 mg BID #Vitamin B12 deficiency Continue cyanocobalamin 1000 mcg daily Dispo: Teeth extraction and I&D scheduled for 12/10/[address] Bernard Reviewed outpatient PCP records Repleted mag IV Admission and Anticipated Discharge Date Admission Date: December 08, 2024 Subjective Patient seen and evaluated at bedside. She reports her mouth is "uncomfortable" but denies any pain. She states she is hungry, as she was n.p.o. until this afternoon when her diet was just lifted as surgery is now scheduled for tomorrow 12/10. She denies any difficulty breathing, shortness of breath, airway compromise, difficulty swallowing saliva. We discussed her continuation on IV clindamycin with plan for surgical intervention with Dr. Bernard tomorrow. No additional complaints or concerns at this time. Review of Systems Review of Systems: All systems reviewed & are unremarkable except as noted in Subjective Physical Exam Physical Exam: General: No acute distress, nondiaphoretic, well-developed, well-nourished. HEENT: Roof of mouth with significant swelling R>L Right sided cervical chain lymphadenopathy noted. Missing multiple teeth. Swallowing secretions without difficulty. Cardiac: Regular rate and rhythm without murmurs gallops or rubs. Pulm: Clear to auscultation bilaterally without wheezes, rales or rhonchi. Normal respiratory effort. 95% on room air. Protecting airway well with no concern for airway compromise at this time. Neuro: A&O x3. No focal neurological deficits. Results & Data Results & Data Vital Signs (Past 12 Hours) Vital Signs Temp Pulse Resp BP Pulse Ox O2 Del Method 12/09/24 14:38 98.2 F 78 15 126/64 95 Room Air 12/09/24 07:36 97.7 F 95 H 18 132/85 93 Room Air Laboratory Results Reviewed CBC with differential Reviewed CMP Reviewed lipid panel Reviewed chemistries Diagnostic Findings Reviewed soft tissue neck CT PG Care Time/CCT Total # of Minutes Spent Total Time Spent with Patient: Total time spent is greater than 50% in coordination of care (as documented) at patient's floor/unit and/or counseling patient: Coding Level of Care Code 28162 SUB INP/OBS CARE 3/50MIN Diagnoses Peritonsillar abscess J36 Paroxysmal atrial fibrillation I48.0 Atrial fibrillation type: paroxysmal Hypertension I10 Dyslipidemia E78.5 Anxiety F41.9 GERD (gastroesophageal reflux disease) K21.9 Vitamin B12 deficiency E53.8 Hypomagnesemia E83.42 (2) Atrial fibrillation Atrial fibrillation type: paroxysmal Qualified Code(s): I48.0 - Paroxysmal atrial fibrillation
[2024-12-09] MEDS: MAGNESIUM SULFATE / D5W 1 GM/100 ML BAG IV ONE (16:48)
[2024-12-09] MEDS: KETOROLAC TROMETHAMINE 15 MG/ML VIAL IV PRN (19:32)
[2024-12-09] MEDS: GABAPENTIN 300 MG CAP PO SCH (20:23)
[2024-12-10 07:55] LABS: Hematocrit (blood only) 37.6 % (37.0-47.0); Hemoglobin 12.4 g/dl (12.0-16.0); Mean Corpuscular Hemoglobin 29.7 pg (25.0-34.0); Mean Corpuscular Volume 90.2 fL (80.0-100.0); Mean Platelet Volume 10.4 fL (9.4-12.4); Platelet Count 193 K/uL (130-400); RDW Coefficient of Variation 14.7 % (11.5-14.5); RDW Standard Deviation 48.5 fL (36.4-46.3); Red Blood Count 4.17 M/uL (4.20-5.40); White Blood Count 5.19 K/ul (4.8-10.8)
--- NOTE | 2024-12-10 10:37 | Anesthesiology Consultation ---
Date of Service December 10, 2024 Assessment & Plan Chart Review Chart Review: Acceptable Risk for Surgery and Patient NOT seen in Pre Admission Testing Consults Requested none ASA ASA4 Proposed Anesthesia Anesthesia Type: General History Surgery Operation Date: 12/10/24 07:00 Proposed Procedures p Right Upper Face Incision and Drainage - Jasper Bernard DMD s Extraction of Multiple Teeth - Jasper Bernard DMD Height/Weight Height: 5 ft Weight: 85.6 kg Allergies Allergy/AdvReac Type Severity Reaction Status Date / Time lidocaine Allergy Severe ANAPHYLAXIS Verified 12/08/24 13:58 NSAIDS (Non-Steroidal Allergy Severe esophagitis Verified 12/08/24 13:58 Anti-Inflamma thimerosal Allergy Severe ANAPHYLACTI Verified 12/08/24 13:58 C cefazolin Allergy Intermediate HIVES Verified 12/08/24 13:58 Penicillins Allergy Intermediate HIVES Verified 12/08/24 13:58 adhesive AdvReac Mild TEARING OF Verified 12/08/24 13:58 SKIN, BLISTERS Flu Virus Vaccine Allergy Severe ANAPHYLACTI Uncoded 12/08/24 13:58 C Medications Home Medications Medication Instructions Recorded Confirmed Last Taken latanoprost 0.005 % eye drops 1 drops ophthalmic (eye) UD 06/25/18 12/08/24 11/20/20 18:00 (Xalatan) lactobacillus combination no.9 4 4,000 mmu cells PO QAM 05/31/19 12/08/24 11/20/20 18:00 billion cell capsule (Adult 50 Plus Probiotic) melatonin 10 mg tablet 10 mg PO HS 08/29/20 12/08/24 11/20/20 18:00 multivitamin 1 tab PO QAM 08/29/20 12/08/24 11/20/20 18:00 vitamins A,C,D-[id number]-tfpdaq 4,296 1 cap PO BID #60 caps 03/07/23 12/08/24 Unknown mcg-226 mg-90 mg capsule (PreserVision AREDS) loratadine 10 mg tablet (Claritin) 10 mg PO DAILY PRN allergies 09/28/23 12/08/24 Unknown rivaroxaban 20 mg tablet (Xarelto) 20 mg PO QPM #90 tabs 10/20/23 12/08/24 Unknown meclizine 25 mg tablet 25 mg PO BID PRN dizziness or 10/23/23 12/08/24 Unknown vertigo #60 tabs atorvastatin 20 mg tablet 20 mg PO HS #90 tabs 06/11/24 12/08/24 Unknown mecobalamin (vitamin B12) 1,000 1,000 mcg PO DAILY #90 tabs 06/11/24 12/08/24 Unknown mcg chewable tablet duloxetine 60 mg capsule,delayed 60 mg PO QPM #90 caps 08/01/24 12/08/24 Unknown release (Cymbalta) omeprazole 20 mg capsule,delayed 20 mg PO BID #180 caps 08/01/24 12/08/24 Unknown release gabapentin 300 mg capsule 300 mg PO TID #90 caps 08/08/24 12/08/24 Unknown metoprolol succinate 100 mg 150 mg (1.5 x 100 mg) PO DAILY 10/28/24 12/08/24 Unknown tablet,extended release 24 hr #135 tabs escitalopram oxalate 10 mg tablet 10 mg PO DAILY #30 tabs 11/30/24 12/08/24 Unknown (Lexapro) Active Medications Generic Name Dose Route Start Last Admin Trade Name Freq PRN Reason Stop Dose Admin Acetaminophen 650 mg 12/08/24 19:16 12/09/24 01:38 Acetaminophen 325 Mg Tab PO 01/07/25 19:15 650 mg Q4H PRN Administration pain/fever Atorvastatin Calcium 20 mg 12/08/24 21:00 12/09/24 20:23 Atorvastatin 20 Mg Tab PO 01/07/25 20:59 20 mg HS SARAH Administration Cyanocobalamin 1,000 mcg 12/09/24 09:00 12/10/24 07:35 Cyanocobalamin (B-12) 500 Mcg Tablet PO 01/08/25 08:59 1,000 mcg DAILY SARAH Administration Duloxetine HCl 60 mg 12/08/24 21:00 12/09/24 20:23 Duloxetine Hcl 60 Mg Cap PO 01/07/25 20:59 60 mg QPM SARAH Administration Escitalopram Oxalate 10 mg 12/09/24 09:00 12/10/24 07:35 Escitalopram Oxalate 10 Mg Tab PO 01/08/25 08:59 10 mg DAILY SARAH Administration Gabapentin 300 mg 12/09/24 21:00 12/10/24 07:35 Gabapentin 300 Mg Cap PO 01/08/25 20:59 300 mg TID SARAH Administration Clindamycin Phosphate 900 mg in 50 mls @ 100 mls/hr 12/09/24 03:00 12/10/24 03:53 Cleocin/D5w IV 12/19/24 03:59 Infused Q8H SARAH Infusion Ketorolac Tromethamine 15 mg 12/09/24 19:08 12/09/24 19:32 Ketorolac Tromethamine 15 Mg/Ml Vial IV 12/14/24 19:07 15 mg Q6H PRN Administration Pain Lactobacillus Acidophilus 1,250 mg 12/09/24 09:00 12/10/24 07:35 Advanced Probiotic 625 Mg Capsule PO 01/08/25 08:59 1,250 mg QAM SARAH Administration Latanoprost 1 drops 12/08/24 21:00 12/09/24 20:24 Latanoprost 0.005% Op Soln 2.5 Ml Btl OP 01/07/25 20:59 1 drops PM SARAH Administration Melatonin 9 mg 12/08/24 21:00 12/09/24 20:23 Melatonin 3 Mg Tab PO 01/07/25 20:59 9 mg HS SARAH Administration Metoprolol Succinate 100 mg 12/09/24 09:00 12/10/24 07:35 Metoprolol Succ 50mg Ext Rel Tab PO 01/08/25 08:59 100 mg BID SARAH Administration Multivitamins/Minerals 1 tab 12/08/24 21:00 12/10/24 07:35 Cerovite Adv Formula Tab PO 01/07/25 20:59 1 tab BID SARAH Administration Ondansetron HCl 4 mg 12/08/24 19:16 12/08/24 21:06 Ondansetron Inj 2 Mg/Ml 2 Ml Vial IV 01/07/25 19:15 4 mg Q6H PRN Administration Nausea Oxycodone HCl 5 mg 12/08/24 21:16 12/09/24 16:47 Oxycodone Hcl Ir 5 Mg Tab (Immediate Release) PO 12/22/24 21:15 5 mg Q6H PRN Administration Severe Pain (Scale 7, 8, 9,10) Pantoprazole Sodium 40 mg 12/08/24 21:00 12/10/24 07:35 Pantoprazole 40 Mg Tab PO 01/07/25 20:59 40 mg BID ASRAH Administration Past Medical History Medical History Hematuria intermittent r/t chronic kidney stones Anxiety Depression Lumbar post-laminectomy syndrome Schatzki's ring Peripheral neuropathy Chronic reflux esophagitis Hyperlipidemia Glaucoma History of colon polyps History of COVID-19 (08/2022) no hosp; resolved Crohn's disease pt states this was an inaccurate diagnosis Pacemaker SECONDARY TO SINUS NODE DYSFUNCTION---medtronic, implanted 06/19/12 Concussion denies Balance disorder Dizziness intermittent Pacemaker lead malfunction lead and battery change 04/2023 [facility] Myofascial pain syndrome Ureterolithiasis hx History of anesthesia reaction BP dropped with hysterectomy Dry heaves occasional Nausea intermittent Kidney stones No current issues - chronic right sided kidney stone On anticoagulant therapy XARELTO DAILY Migraine HX- NO ISSUES X 20 YEARS Left knee DJD Atrial tachycardia Follows with cardio- on metoprolol Atrial fibrillation On Xarelto - follows w/ Dr Mackenzie Exercise / Class Metabolic Activity III < 4 Walking/Shop/Light housework Past Family History Family History Mother Diabetes Arthritis Myocardial infarction Renal failure Glaucoma Stroke Family/Other Coronary heart disease Cancer Hypertension Sister Colorectal cancer Glaucoma IBS (irritable bowel syndrome) Father Alzheimer disease Traumatic brain injury A-fib Hypertension Grandmother (Maternal) Myocardial infarction Grandfather (Maternal) Arthritis Grandmother (Paternal) Multiple sclerosis Other No family history of adverse response to anesthesia Denies family history of Ovarian cancer Prostate cancer Breast cancer Lung cancer Past Surgical History Surgical History History of total left knee replacement Status post total left knee replacement November 21, 2020/Dr. Esparza History of esophageal dilatation Nausea and vomiting after administration of anesthetic agent History of esophagogastroduodenoscopy (EGD) History of colonoscopy History of cystoscopy WITH STENTS History of cardiac cath [id number] STENTS [facility] Status post right knee replacement Hx of total knee arthroplasty RIGHT 2012 History of lumbar fusion H/O: hysterectomy MITA with BSO S/P cholecystectomy pacemaker 2011 Past Anesthesia History No Hx of Anesthesia Complications and No Family Hx of Anesthesia Complications History of PONV No Hx of PONV and No Hx of Motion Sickness Social History Smoking Status: Never smoker Do You Dip or Chew Tobacco: No Hx Alcohol Use: No Alcohol type: beer alcohol intake frequency: holidays/special occasions only Hx Substance Use: No substance use type: does not use Physical Exam Vital Signs Last Vital Signs Temp 36.9 C 12/10/24 05:45 Pulse 72 12/10/24 05:45 Resp 18 12/10/24 05:45 BP 126/72 12/10/24 05:45 Pulse Ox 97 12/10/24 05:45 O2 Del Method Room Air 12/10/24 05:45 Testing Laboratory Results 12/10/24 06:57 12/09/24 06:22 Electrocardiogram Date: 12/06/24 Findings: + pertinent finding (paced @ 60)
[2024-12-10] MEDS ORDERED: ROCURONIUM BROMIDE 10 MG/ML 5 ML VIAL IV ONE (12:43)
[2024-12-10] MEDS ORDERED: fentaNYL citrate PF 100 MCG/2 ML VIAL ONE ×2 (12:43→14:03)
[2024-12-10] MEDS ORDERED: PROPOFOL IV EMULSION 10 MG/ML 20 ML VIAL IV ONE (12:43)
[2024-12-10] MEDS ORDERED: ONDANSETRON INJ 2 MG/ML 2 ML VIAL ONE (12:45)
[2024-12-10] MEDS ORDERED: DEXAMETHASONE SOD INJ 4 MG/ML VIAL ONE (12:45)
[2024-12-10] MEDS ORDERED: HYDROmorphone INJ 1 MG/ML SYRINGE IV PRN (13:10)
[2024-12-10] MEDS ORDERED: ATROPINE SULFATE 0.1 MG/ML 10ML SYR IV PRN (13:10)
[2024-12-10] MEDS ORDERED: ONDANSETRON INJ 2 MG/ML 2 ML VIAL IV PRN (13:10)
[2024-12-10] MEDS ORDERED: fentaNYL citrate PF 100 MCG/2 ML VIAL IV PRN (13:10)
[2024-12-10] MEDS: LACTATED RINGER'S 1,000 ML IV SCH (13:10)
[2024-12-10] MEDS ORDERED: ePHEDrine sulfate 50 MG/ML AMP IV PRN (13:10)
--- NOTE | 2024-12-10 13:17 | History & Physical Bridge Note ---
Date of Service December 10, 2024 History & Physical Bridge Note I have examined the patient, reviewed the History & Physical and in the interval since the performance of the History & Physical I have noted the following changes of clinical significance: no changes noted. I reviewed the overall treatment plan with her dentist Dr Penny--extraction of 1,2,5,7,8,10,24,25,29 I&D upper left infraorbital area and mucobuccal fold Hold Jaron camp will start Tomorrow PM
[2024-12-10] MEDS: CHLORHEXIDINE GLUCONATE 0.12% 480 ML MT ONE (13:52)
[2024-12-10] MEDS ORDERED: LABETALOL HCL IV 5 MG/ML 20ML IV ONE (13:58)
[2024-12-10] MEDS: BUPIVACAINE/EPINEPHRINE 0.5% 1:200,000 1.8 ML CARP ONE (14:07)
[2024-12-10] MEDS: SURGICEL ABSORB HEMOSTAT 2IN X 14IN TOP ONE (14:08)
[2024-12-10] MEDS ORDERED: DexMEDEtomidine HCL IV 100 MCG/ML VIAL IV ONE (14:22)
[2024-12-10] MEDS ORDERED: ACETAMINOPHEN 1000 MG/100 ML IV IV ONE (14:22)
[2024-12-10] MEDS ORDERED: SUGAMMADEX SODIUM 200 MG/2 ML VIAL IV ONE ×2 (14:27→14:52)
--- NOTE | 2024-12-10 15:22 | Anesthesiology Progress Note ---
Date of Service December 10, 2024 Anesthesia Post Procedure Vital Signs Vital Signs: Temp Pulse Pulse Resp BP BP Pulse Ox 12/10/24 15:05 74 18 158/105 H 97 12/10/24 14:58 36 C L 79 12 118/97 96 12/10/24 13:00 37 C 95 H 18 150/99 H 94 12/10/24 05:45 36.9 C 72 18 126/72 97 12/09/24 19:40 36.5 C 69 18 121/77 95 O2 Del Method O2 Flow Rate 12/10/24 15:05 Oxymask 3 12/10/24 14:58 Oxymask 6 12/10/24 13:00 Room Air 12/10/24 05:45 Room Air 12/09/24 19:40 Room Air Pain Intensity Left Face: Pain Intensity: 9 Transfer of Care Handoff Completed per policy Notes Mental Status: alert / awake / arousable and participated in evaluation Patient Amnestic to Procedure: Yes Nausea / Vomiting: adequately controlled Pain: adequately controlled Airway Patency, RR, SpO2: stable & adequate BP & HR: stable & adequate Hydration State: stable & adequate Anesthetic Complications: no major complications apparent and Pt Satisfied with anesthetic care Notes: Patient's left eyelid was closed but was able to open it on command. Moving extremities x4. Conversant, not slurring speech. Tongue midline. Pain controlled now as she was unable to get local anesthesia from surgeon given hx/o anaphylaxis for lidocaine.
--- NOTE | 2024-12-10 15:26 | Post Operative Brief Note ---
PG Immediate Post Op with CF Date of Surgery December 10, 2024 Pre & Post Diagnosis Operation Date: 12/10/24 07:00 Pre-Op Diagnosis: Right Maxillary Abscess with Multiple Decayed/Fractured Teeth Post-Op Diagnosis: Right Maxillary Abscess with Multiple Decayed/Fractured Teeth I identified the patient and participated in the time-out.: Yes Procedure Operation Date: 12/10/24 07:00 Actual Procedures p Right Maxillary Incision and Drainage with Extraction of Multiple Teeth (#1,#2,#3,#5,#7,#8,#10,#24,)(Right) - Jasper Bernard DMD Surgeon Jasper Bernard, EVE Mall Manager none Estimated Blood Loss 20 Findings Consistent with Post-Op Diagnosis gross infection of the upper right side of the face and infraorbital area grossly infected teeth Specimens Specimen Description: Culture #1--Right Maxillary Infection--for routine culture and sensitivity, gram stain, aerobes and anaerobes Complications none Disposition Accompanied Patient To Recovery: Yes
--- NOTE | 2024-12-10 17:32 | Hospitalist Progress Note ---
Date of Service December 10, 2024 Assessment & Plan (1) Peritonsillar abscess: (2) Atrial fibrillation: (3) Hypertension: (4) Dyslipidemia: (5) Anxiety: (6) GERD (gastroesophageal reflux disease): (7) Vitamin B12 deficiency: Plan Shalini is a 74-year-old pleasant female with past medical history of atrial fibrillation, hypertension, dyslipidemia, depression, anxiety, insomnia, chronic low back pain, GERD, vitamin B12 deficiency. She presented on 12/08/2024 with acute facial infection, admitted for IV antibiotics and surgical intervention with oral and maxillofacial surgeon. CT soft tissue neck revealed suspected 9 mm abscess in the left palatine tonsil and apparent 12 x 4 mm abscess along the anterior aspect of the right maxillary bone. #Dental abscesses S/p Right Maxillary Incision and Drainage with Extraction of Multiple Teeth (#1,#2,#3,#5,#7,#8,#10,#24,)(Right) with Dr. Bernard 12/10. EBL none, no complications noted Continue Clindamycin IV Q8H Clear liquid diet for now #Atrial fibrillation/hypertension/dyslipidemia Typically takes metoprolol 150 mg daily at home. Metoprolol increased to 100 mg BID while inpatient due to hypertension on arrival, likely secondary to acute pain/infection Xarelto held with upcoming surgery. Resume postop when approved by maxillofacial surgery Hypomagnesemia repleted and augmented appropriately Continue atorvastatin 20 mg #Anxiety/depression/insomnia/chronic lower back pain Continue Lexapro 10 mg daily, Cymbalta 60 mg QPM, gabapentin 300 mg TID, melatonin 9 mg HS #GERD/Schatzki's ring Continue pantoprazole 40 mg BID #Vitamin B12 deficiency Continue cyanocobalamin 1000 mcg daily Dispo: Postop from extensive maxillofacial surgery today, monitor overnight, anticipate discharge in next 24-48 hours Admission and Anticipated Discharge Date Admission Date: December 08, 2024 Supervising Physician Co-Signing Physician Notes Attending Attestation - Chart reviewed, care plan d/w SONYA Thornton. I agree w/ the villarreal components of her documentation. Appreciate Dr Bernard's assistance in the OR today. Cont IV clindamycin. Jj Driscoll MD Subjective Patient seen and evaluated at bedside prior to her surgery. She reports the Toradol controls her pain better than the oxycodone did. She states she is hungry due to being n.p.o. status with upcoming surgery. She denies any difficulty swallowing, shortness of breath, difficulty breathing. No additional complaints or concerns at this time. We discussed that she will remain inpatient overnight after her surgery for further monitoring and treatment, she is understanding. Physical Exam Physical Exam: General: No acute distress, nondiaphoretic, well-developed, well-nourished. HEENT: Roof of mouth with significant swelling R>L Right sided cervical chain lymphadenopathy noted. Missing multiple teeth. Swallowing secretions without difficulty. Cardiac: Regular rate and rhythm without murmurs gallops or rubs. Pulm: Clear to auscultation bilaterally without wheezes, rales or rhonchi. Normal respiratory effort. 95% on room air. Protecting airway well with no concern for airway compromise at this time. Neuro: A&O x3. No focal neurological deficits. Results & Data Results & Data Vital Signs (Past 12 Hours) Vital Signs Temp Pulse Pulse Resp BP BP Pulse Ox 12/10/24 17:02 97.5 F L 81 18 135/77 91 12/10/24 16:37 97.8 F 82 16 135/76 92 12/10/24 16:02 97.9 F 80 14 164/100 H 92 12/10/24 15:25 97.7 F 78 18 164/87 H 98 12/10/24 15:15 77 16 175/108 H 98 12/10/24 15:05 74 18 158/105 H 97 12/10/24 14:58 96.8 F L 79 12 118/97 96 12/10/24 13:00 98.6 F 95 H 18 150/99 H 94 12/10/24 05:45 98.4 F 72 18 126/72 97 O2 Del Method O2 Flow Rate 12/10/24 17:02 Nasal Cannula 3 12/10/24 16:37 Nasal Cannula 3 12/10/24 16:02 Nasal Cannula 2 12/10/24 15:25 Nasal Cannula 2 12/10/24 15:15 Nasal Cannula 2 12/10/24 15:05 Oxymask 3 12/10/24 14:58 Oxymask 6 12/10/24 13:00 Room Air 12/10/24 05:45 Room Air Laboratory Results Reviewed CBC Reviewed mag PG Care Time/CCT Total # of Minutes Spent Total Time Spent with Patient: Total time spent is greater than 50% in coordination of care (as documented) at patient's floor/unit and/or counseling patient: Coding Level of Care Code 05412 SUB INP/OBS CARE 2MIN Diagnoses Peritonsillar abscess J36 Paroxysmal atrial fibrillation I48.0 Atrial fibrillation type: paroxysmal Hypertension I10 Dyslipidemia E78.5 Anxiety F41.9 GERD (gastroesophageal reflux disease) K21.9 Vitamin B12 deficiency E53.8 (2) Atrial fibrillation Atrial fibrillation type: paroxysmal Qualified Code(s): I48.0 - Paroxysmal atrial fibrillation
[2024-12-10 17:59] VITALS: RESP 16
[2024-12-11 08:17] VITALS: BP 132/86; PULSE 77; TEMP 98.1; O2SAT 95
--- NOTE | 2024-12-11 10:29 | Oral/Maxillofacial Progress Nt ---
Date of Service December 11, 2024 Assessment & Plan Admission and Anticipated Discharge Date Admission Date: December 08, 2024 Subjective Post Op infection evaluation 24 hours The infected area has responded very well, swelling almost gone in the right cheek/lip and mucobuccal fold Swelling is almost gone and the tissue is back to normal in size and texture. No further drainage is noted. Cultures pending Infection has responded very well to the antibiotics, extractions and the I and D. I requested that the patient continue with massage, heat and wound care. The tissues were very inflamed and there was a lot of oozing--I told Shalini to restart her Xarelto FridayDecember 12 At this time the area is well healed and responded well to treatment,OK for D/C Rx Clindamycin and Vicodin 5/[address] Bernard on December 23 at 1:15 Results & Data Vital Signs (Past 12 Hours) Vital Signs Temp Pulse Resp BP BP Pulse Ox O2 Del Method 12/11/24 08:15 36.7 C 77 132/86 95 Room Air 12/11/24 04:10 36.3 C L 68 16 132/84 94 Room Air 12/10/24 23:34 36.5 C 70 16 139/77 95 Room Air PG Care Time/CCT Total # of Minutes Spent Total Time Spent with Patient: Total time spent is greater than 50% in coordination of care (as documented) at patient's floor/unit and/or counseling patient: Coding Level of Care Code 09603 SUB INP/OBS CARE 11/06MIN
--- NOTE | 2024-12-11 17:15 | Discharge Summary ---
Discharge Summary Date of Service December 11, 2024 Principal Dx & Hospital Course #1 = Principal Diagnosis (1) Peritonsillar abscess: (2) Atrial fibrillation: (3) Hypertension: (4) Dyslipidemia: (5) Anxiety: (6) GERD (gastroesophageal reflux disease): (7) Vitamin B12 deficiency: Marily Loya is a 74-year-old pleasant female with past medical history of atrial fibrillation, hypertension, dyslipidemia, depression, anxiety, insomnia, chronic low back pain, GERD, vitamin B12 deficiency. She presented on 12/08/2024 with acute facial infection, admitted for IV antibiotics and surgical intervention with oral and maxillofacial surgeon. CT soft tissue neck revealed suspected 9 mm abscess in the left palatine tonsil and apparent 12 x 4 mm abscess along the anterior aspect of the right maxillary bone. #Dental abscesses S/p Right Maxillary Incision and Drainage with Extraction of Multiple Teeth (#1,#2,#3,#5,#7,#8,#10,#24,)(Right) with Dr. Bernard 12/10. EBL none, no complications noted Received Clindamycin IV Q8H while hospitalized, discharged on Clindamycin PO TID x 7 days Clear liquid diet advance as tolerated to soft food until f/u appt with Dr. Bernard on 12/23/24 at 1:15 PM. #Atrial fibrillation/hypertension/dyslipidemia Typically takes metoprolol 150 mg daily at home. Metoprolol increased to 100 mg BID while inpatient due to hypertension on arrival, likely secondary to acute pain/infection Hold Xarelto through 12/12/24 Continue atorvastatin 20 mg #Anxiety/depression/insomnia/chronic lower back pain Continue Lexapro 10 mg daily, Cymbalta 60 mg QPM, gabapentin 300 mg TID, melatonin 9 mg HS #GERD/Schatzki's ring Continue pantoprazole 40 mg BID #Vitamin B12 deficiency Continue cyanocobalamin 1000 mcg daily Dispo: Discharged home 12/11/24 Admission HPI Per Admitting Provider This 74-year-old female who has a history of dental caries and scheduled for tooth extraction with the beginning of December. Over the last 24 to 36 hours she has had increased pain and swelling and erythema over the right maxillary region and came to the ER for further evaluation and treatment. In the emergency department CT of the soft tissues of the neck were obtained which identified a 9 mm abscess in the left palatine tonsil as well as a 12 x 4 mm abscess along the anterior aspect of the right maxillary bone. Maxillofacial surgery was consulted via the ER. The patient was given clindamycin IV 900 mg. Tentative plan is to go to the operating room tomorrow for tooth extraction and I&D. We are called admit the patient for further evaluation and treatment. Discharge Exam General: No acute distress, nondiaphoretic, well-developed, well-nourished. HEENT: Significant improvement in swelling. Extracted teeth sites healing well. Cardiac: Regular rate and rhythm without murmurs gallops or rubs. Pulm: Clear to auscultation bilaterally without wheezes, rales or rhonchi. Normal respiratory effort. 95% on room air. Neuro: A&O x3. No focal neurological deficits. Discharge Plan Discharge Items Patient Disposition: Home - Self-Care Reason For Visit: DENTAL ABSCESS Discharge Diagnosis: s/p dental infection with significant facial swelling Condition on Discharge: Good Activity: Resume your previous activity Lifting: Gradually increase as tolerated Bathing: No limitations Exercise/Sports: Gradually increase as tolerated Driving/Machine Use: Resume 1 day after discharge Weightbearing: Full weightbearing Non-emergency contact: Surgeon Call non-emergency contact if: you have any medication questions, your pain is not controlled, your temperature is above 101.5, your wound has increased redness, your wound has increased drainage and your wound pain has increased Follow-up/Referrals: Gema Amezquita MD [Primary Care Provider] - (Follow-up in 1-2 weeks) Jasper Bernard, EVE [Physician] - 12/23/24 1:15 pm Diet: Full liquid and Clear liquid Diet Texture: Easy to Chew Addtl Attending Provider Instructions: Shalini, Please follow the instructions from Dr. Bernard listed below. - Take Clindamycin (oral antibiotic) as prescribed. - Take Tylenol as needed for pain. Use Vicodin NEEDED for breakthrough pain. - Resume taking your Xarelto medicine on Friday12/12/24. - Continue with massage, heat and wound care. - Follow a liquid diet and advance as tolerated to soft foods until your follow- up appointment. - Follow-up in the clinic with Dr. Bernard. Your appointment is scheduled for 12/23/24 at 1:15 PM. ADDITIONAL ACTIVITY RECOMMENDATIONS: * [place] teeth after every meal. It is very important to keep your mouth clean to prevent infection. * Starting tonight rinse with the Peridex as directed then 2 x a day * it is very important to keep well hydrated, this prevents fever and possible dry socket pain SPECIAL CARE INSTRUCTIONS: *It is not uncommon that between day 2-4 that your swelling will be at its worst this is very normal, do not be alarmed. * Keep ice on the side of your face for the next 24 to 36 hours. This will help keep the swelling down. * After 36 hours, apply heat (hot water bottle or heating pad) for the next two days, as often as possible. * Tomorrow start rinsing your mouth with 1/2 teaspoon salt in 8 ounces warm water. This rinse should be used every 4-6 hours. * You may experience slight nausea. To prevent this, never take your medication on an empty stomach. If nauseated, take small sips of stephy celine until you feel better; then you may start on applesauce and toast. * A certain amount of bleeding is to be expected. It is often possible to control mild oozing by placing folded gauze over the area and biting down for 30 minutes. If you are unable to control excessive bleeding, call Dr Bernard at [phone] * You may experience some discomfort for a few days. If pain or swelling increases, Call Dr Bernard * Return to the office for a follow up check up on: December * office address--[facility] [address]. phone # [phone] Pending Studies at Discharge: No Stand-Alone Forms: My [facility], Smoking Cessation Medications and DC Order Prescriptions: Continued latanoprost [Xalatan] 0.005 % drops 1 drops OP UD Rx Instructions: 1 drop op qpm. No fill history available Adult 50 Plus Probiotic 4 billion cell capsule 4,000 mmu cells PO QAM Rx Instructions: OTC unable to verify atorvastatin 20 mg tablet 20 mg PO HS Qty: 90 3RF mecobalamin (vitamin B12) 1,000 mcg tablet,chewable 1,000 mcg PO DAILY Qty: 90 3RF Rx Instructions: OTC unable to verify duloxetine [Cymbalta] 60 mg capsule,delayed release(DR/EC) 60 mg PO QPM Qty: 90 1RF omeprazole 20 mg capsule,delayed release(DR/EC) 20 mg PO BID Qty: 180 1RF gabapentin 300 mg capsule 300 mg PO TID Qty: 90 5RF metoprolol succinate 100 mg tablet extended release 24 hr 150 mg PO DAILY Qty: 135 3RF escitalopram oxalate [Lexapro] 10 mg tablet 10 mg PO DAILY Qty: 30 1RF clindamycin HCl 300 mg capsule 300 mg PO TID 7 Days Qty: 21 0RF hydrocodone-acetaminophen 5-325 mg tablet 1 tab PO Q4H PRN (Reason: pain) Qty: 14 0RF PreserVision AREDS 4,296 mcg-226 mg-90 mg capsule 1 cap PO BID Qty: 60 2RF Rx Instructions: OTC unable to verify meclizine 25 mg tablet 25 mg PO BID PRN (Reason: dizziness or vertigo) Qty: 60 0RF Rx Instructions: OTC unable to verify multivitamin Tablet 1 tab PO QAM Rx Instructions: OTC unable to verify melatonin 10 mg Tablet 10 mg PO HS Rx Instructions: OTC unable to verify loratadine [Claritin] 10 mg tablet 10 mg PO DAILY PRN (Reason: allergies) Rx Instructions: OTC unable to verify Held Xarelto 20 mg tablet 20 mg PO QPM Qty: 90 3RF Hold Instructions: Resume on 12/12/24. Rx Instructions: must administer with evening meal Discharge Orders: Discharge Order (Routine); Ordered 12/11/24 Ordered By: Mara Jack/Other Patient Handouts: Peritonsillar Abscess Admission Data Admit Date/Time: 12/08/24 19:18 Attending Provider: Mauro Rodriguez Admit Provider: Rodolfo Wright Primary Care Provider: Gema Amezquita V. Other Providers: Rodolfo Wright; Jasper Bernard Other Interventions: Discharge Summary Assessment (RN) Last Done: 12/11/24 12:35 Hospital Stay Data Consultations 12/08/24 18:57 ED Decision to Admit Stat 12/08/24 19:16 Consult Oromaxillofacial Surgery Routine Procedures Performed Operation Date: 12/10/24 07:00 Actual Procedures p Right Maxillary Incision and Drainage with(Right) - Jasper Bernard DMD s Extraction of Multiple Teeth (#1,#2,#3,#5,#7,#8,#10,#24,#29,) - Jasper Bernard, DMD Diagnostic Imagining Performed 12/08/24 16:24 CT soft tissue neck w con Stat Pending Results Patient Have Any Pending Studies at Discharge: No Discharge Instructions Given to Patient (Per Discharging Provider) Shalini, Please follow the instructions from Dr. Bernard listed below. - Take Clindamycin (oral antibiotic) as prescribed. - Take Tylenol as needed for pain. Use Vicodin NEEDED for breakthrough pain. - Resume taking your Xarelto medicine on Friday12/12/24. - Continue with massage, heat and wound care. - Follow a liquid diet and advance as tolerated to soft foods until your follow- up appointment. - Follow-up in the clinic with Dr. Bernard. Your appointment is scheduled for 12/23/24 at 1:15 PM. ADDITIONAL ACTIVITY RECOMMENDATIONS: * [place] teeth after every meal. It is very important to keep your mouth clean to prevent infection. * Starting tonight rinse with the Peridex as directed then 2 x a day * it is very important to keep well hydrated, this prevents fever and possible dry socket pain SPECIAL CARE INSTRUCTIONS: *It is not uncommon that between day 2-4 that your swelling will be at its worst this is very normal, do not be alarmed. * Keep ice on the side of your face for the next 24 to 36 hours. This will help keep the swelling down. * After 36 hours, apply heat (hot water bottle or heating pad) for the next two days, as often as possible. * Tomorrow start rinsing your mouth with 1/2 teaspoon salt in 8 ounces warm water. This rinse should be used every 4-6 hours. * You may experience slight nausea. To prevent this, never take your medication on an empty stomach. If nauseated, take small sips of stephy celine until you feel better; then you may start on applesauce and toast. * A certain amount of bleeding is to be expected. It is often possible to control mild oozing by placing folded gauze over the area and biting down for 30 minutes. If you are unable to control excessive bleeding, call Dr Bernard at [phone] * You may experience some discomfort for a few days. If pain or swelling increases, Call Dr Bernard * Return to the office for a follow up check up on: December * office address--[facility] [address]. phone # [phone] Total Time Total Time Spent Total Time Spent (In Minutes): Greater than 30 minutes spent completing this discharge process including direct patient care, medication reconciliation, documentation, review of labs and images, and coordination of care. Coding Level of Care Code 85028 INP/OBS DISCH >30 MIN Diagnoses Peritonsillar abscess J36 Paroxysmal atrial fibrillation I48.0 Atrial fibrillation type: paroxysmal Hypertension I10 Dyslipidemia E78.5 Anxiety F41.9 GERD (gastroesophageal reflux disease) K21.9 Vitamin B12 deficiency E53.8
== END 2024-12-11 13:06 | disposition home or self-care (01) | DRG 153 ==
LOC: ED 15:18 → 3W 19:18 → SUATTDRO 19:18 → 3W 20:35